=== PATIENT | male | born 1945 | race Caucasian/White ===

== ENCOUNTER 2017-02-18 08:51 | Outpatient (CLI) | payer MEDICARE, BC | END 2017-02-18 08:52 | disposition home or self-care (01) | PROVIDERS: ATTEND Psychiatry & Neurology Neurology | DX: R13.12 Dysphagia, oropharyngeal phase (principal); R63.3 Feeding difficulties; G20 Parkinson's disease | CPT/HCPCS: 74230; G8996-GN-CK; G8997-GN-CI ==

== ENCOUNTER 2017-05-06 13:03 | Outpatient (CLI) | payer MEDICARE, BC ==
--- NOTE | 2017-05-11 16:26 | RAD ---
MODIFIED BARIUM SWALLOW PERFORMED WITH SPEECH THERAPIST 05/11/17 HISTORY: Dysphagia with feeding difficulty and Parkinson's disease. Patient is given a variety of textures including puree and nectar thick liquid via cup, thin liquid v ia spoon and cup and mechanical soft texture food. This shows persistent residue in the vallecula and piriform sinus level. There is aspiration noted to the vocal fold level with one of the swallows consistencies not labeled on the films. No definite ex tension beyond the vocal cord level. IMPRESSION: Findings as noted above. Please see speech therapists report for complete description. POS: [facility]
== END 2017-05-06 13:04 | disposition home or self-care (01) ==
PROVIDERS: ATTEND Psychiatry & Neurology Neurology
DX: R13.12 Dysphagia, oropharyngeal phase (principal); R63.3 Feeding difficulties; G20 Parkinson's disease
CPT/HCPCS: 74230; G8996-GN-CK; G8997-GN-CJ

== ENCOUNTER 2017-11-07 23:45 | Inpatient (IN) | payer MEDICARE, BC ==
[2017-11-08] MEDS ORDERED: Diltiazem 125 MG/25 ML ONE (00:05)
[2017-11-08 00:20] LABS: INR-International Normal Ratio 0.9; PTT 28.4 SEC (22.9-36.1); Prothrombin Time 12.7 SEC (12.0-14.7)
[2017-11-08] MEDS ORDERED: Digoxin 0.5 MG/2 ML AMP ONE ×2 (00:20→00:55)
[2017-11-08 00:32] LABS: #Basophils 0.1 thou/uL (0.0-0.2); #Eosinphils 0.2 thou/uL (0.0-0.7); #Lymphocytes 2.4 thou/uL (1.20-3.40); #Monocytes 0.5 thou/uL (0.11-0.59); #Neutrophils 3.9 thou/uL (1.40-6.50); %Basophils 1.4 % (0.0-1.0); %Eosinophils 3.5 % (0.0-10.0); %Lymphocytes 33.4 % (21.0-51.0); %Monocytes 6.3 % (0.0-10.0); %Neutrophils 55.5 % (42.0-75.0); Hemoglobin 13.3 g/dL (14.0-18.0); Mean Corpuscular HGB CONC 34.7 g/dL (32.0-36.0); Mean Corpuscular Hemoglobin 31.1 pg (27.0-31.0); Mean Corpuscular Volume 89.6 fL (78.0-98.0); Mean Platelet Volume 9.1 fL (7.4-10.4); Platelet Count 244 thou/uL (130-400); RBC Distribution Width 11.5 % (11.5-14.5); Red Blood Cell (RBC) Count 4.26 mill/uL (4.70-6.10)
[2017-11-08 00:35] LABS: CKMB 1.7 ng/mL (0-6.6); Troponin I Less than 0.010 ng/mL (< 0.028)
[2017-11-08 00:39] LABS: Anion Gap 14 mmol/L (10-20); BUN (Urea Nitrogen) 9 mg/dL (8.4-25.7); Calc. Creatinine Clearance 0 mL/min (70-130); Calcium 9.9 mg/dL (7.8-10.44); Carbon Dioxide 31 mmol/L (23-31); Chloride 100 mmol/L (98-107); Estimated GFR-MDRD Greater than 90; Glucose 96 mg/dL (83-110); Lipase 56 U/L (8-78); Magnesium 2.2 mg/dL (1.6-2.6); Potassium 3.7 mmol/L (3.5-5.1); Sodium 141 mmol/L (136-145)
[2017-11-08] MEDS ORDERED: Diltiazem HCl 125 MG, Admixture Fee 1 EACH in Sodium Chloride 0.9% 100 ML IVPB SCH (02:45)
[2017-11-08 02:47] VITALS: BMI 27.5
[2017-11-08] MEDS ORDERED: Loratadine 10 MG TAB PO PRN (06:46)
[2017-11-08] MEDS ORDERED: Mag-Al 1200 mg/1200 mg/30 ML UDCUP PO PRN (06:46)
[2017-11-08] MEDS ORDERED: Loperamide HCl 2 MG CAP PO PRN (06:46)
[2017-11-08] MEDS ORDERED: Diltiazem 125 MG in Sodium Chloride 0.9% 100 ML IVPB SCH (06:46)
[2017-11-08] MEDS ORDERED: Artificial Tears 18 DROP/0.9 ML EA EYE PRN (06:46)
[2017-11-08] MEDS ORDERED: HYDROcodone/Acetaminophen 5/325 mg Tablet PO PRN (06:46)
[2017-11-08] MEDS ORDERED: Ondansetron HCl/PF 4 MG/2 ML Vial IVP PRN (06:46)
[2017-11-08] MEDS ORDERED: Senokot 8.6 MG TAB PO PRN (06:46)
[2017-11-08] MEDS ORDERED: Chloraseptic Spray 180 ml Bottle PO PRN (06:46)
[2017-11-08] MEDS ORDERED: Ondansetron ODT 4 MG TAB PO PRN (06:46)
[2017-11-08] MEDS ORDERED: Nitroglycerin 0.4 MG TAB (25 Tab Bottle) SL PRN (06:46)
[2017-11-08] MEDS ORDERED: Acetaminophen 325 MG TAB PO PRN (06:46)
[2017-11-08] MEDS ORDERED: Diabetic Tussin 200 MG/10 ML UDCUP PO PRN (06:46)
[2017-11-08] MEDS ORDERED: Sodium Chloride 0.65% Nasal 44 ML BOT EA NARE PRN (06:46)
[2017-11-08] MEDS ORDERED: Eucerin (Mineral Oil/Petrolatum,White) 30 gm Jar TOP PRN (06:46)
[2017-11-08] MEDS ORDERED: Zolpidem Tartrate 5 MG TAB PO PRN (06:46)
[2017-11-08] MEDS ORDERED: hydrALAZINE 20 MG/ML VIAL SLOW IVP PRN (06:46)
[2017-11-08] MEDS ORDERED: Labetalol HCl 100 MG/20 ML VIAL SLOW IVP PRN (06:46)
[2017-11-08] MEDS ORDERED: Milk Of Magnesia 30 ML UDCUP PO PRN (06:46)
[2017-11-08] MEDS: Midodrine HCl 5 MG TAB PO SCH ×2 (08:41→20:33)
[2017-11-08] MEDS: Calcium Polycarbophil 625 MG TAB PO SCH (08:41)
[2017-11-08] MEDS: Aspirin 325 MG TAB PO SCH (08:42)
[2017-11-08] MEDS: Famotidine 20 MG TAB PO SCH ×2 (08:42→20:34)
[2017-11-08] MEDS ORDERED: MIDODRINE HCL PO SCH (09:00)
[2017-11-08] MEDS ORDERED: Prevnar 13-Val Conj/PF 0.5 ML SYRINGE IM ONE (09:00)
[2017-11-08] MEDS ORDERED: Aspirin 325 MG TAB PO SCH (09:00)
--- NOTE | 2017-11-08 09:25 | RAD ---
PORTABLE AP CHEST XRAY: DATE: 11/08/17. HISTORY: Chest pain. COMPARISON: 11/08/17. FINDINGS: Cardiac silhouette and pulmonary vasculature are within normal limits for the portable technique of t he study. The lateral aspect of the right lateral costophrenic angle is excluded from view. Lungs o therwise appear clear. Minimal vascular calcification of the thoracic aorta. There has been no inte rval change from prior exam. IMPRESSION: No acute cardiopulmonary process. POS: [facility]
--- NOTE | 2017-11-08 11:28 | HP ---
PRIMARY CARE PHYSICIAN: [facility] call admission. REASON FOR ADMISSION: Atrial fibrillation with rapid ventricular response. HISTORY OF PRESENT ILLNESS: A 72-year-old male who has previous history of atrial fibrillation, requ ired ablation in past who presented to emergency room last night with the complaint of chest pain. T he patient was having chest pain on the left side without any radiation, started last night around mi dnight. He describes pain as a pressure and sharp in nature without any radiation and that is why he went to emergency room at [facility]. The patient was also experiencing intermittentl y shortness of breath, palpitation for last 2-3 days. He denies any previous bleeding. He denies an y previous stroke. He denies any diabetes history. He denies any CHF symptoms. He denies any UTI s ymptoms. He denies any constipation, diarrhea, melena or hematochezia. Patient reports that he was not on any blood thinner medicine recently that was taken off from his me dicine by his doctors. The patient was also not taking any rate controlling medication. The patient does not have any clue about his cardiac medication. This patient has a negative stress test in 201 4. At that time, the patient had ablation procedure for atrial fibrillation. REVIEW OF SYSTEMS: The following complete review of systems was negative, unless otherwise mentioned in the HPI or below: Constitutional: Weight loss or gain, ability to conduct usual activities. Skin: Rash, itching. Eyes: Double vision, pain. ENT/Mouth: Nose bleeding, neck stiffness, pain, tenderness. Cardiovascular: Palpitations, dyspnea on exertion, orthopnea. Respiratory: Shortness of breath, wheezing, cough, hemoptysis, fever or night sweats. Gastrointestinal: Poor appetite, abdominal pain, heartburn, nausea, vomiting, constipation, or diarr hea. Genitourinary: Urgency, frequency, dysuria, nocturia. Musculoskeletal: Pain, swelling. Neurologic/Psychiatric: Anxiety, depression. Allergy/Immunologic: Skin rash, bleeding tendency. Please see my HPI for pertinent positive and negative. All other review of system reviewed and negat gloria except as mentioned in the HPI. PAST MEDICAL HISTORY: Paroxysmal atrial fibrillation, diabetes type 2, noninsulin dependent, but stephanie monreal is not on any of his medications lately and it is unclear whether he has real diabetes history o r not, hypothyroidism, Parkinson's disease, dyslipidemia. PAST SURGICAL HISTORY: Bilateral eye surgery, cardiac catheterization with ablation procedure. SOCIAL HISTORY: Patient lives at home with his family. No family history of tobacco or other illici t drug abuse. He drinks alcohol 2-3 beer per week. FAMILY HISTORY: Father from congestive heart failure. No strong family history of cancer or st roke. PAST PSYCHIATRIC HISTORY: Reviewed and negative. CURRENT HOME MEDICATIONS: Aspirin 81 mg p.o. daily, FiberCon one tablet p.o. daily, carbidopa/levodo pa one tablet b.i.d., Synthroid 50 mcg p.o. daily, midodrine 2.5 mg p.o. b.i.d., MiraLax 17 grams p.o . daily, Zocor 20 mg p.o. at bedtime. ALLERGIES: No known drug allergy. EMERGENCY ROOM COURSE: Patient was treated with a Cardizem drip. He was given digoxin, IV fluid, as pirin 324 mg. PHYSICAL EXAMINATION: VITAL SIGNS: On arrival, blood pressure 107/84, pulse 152, respiratory rate 22, temperature 98.2, sa turation 99% on room air, weight 70.3 kilograms. GENERAL: The patient is currently alert, awake, no obvious acute distress. HEENT: Head: Normocephalic, atraumatic. Eyes: Pupils round, reactive to light. Extraocular muscl e intact. ENT: Oropharynx within normal limits. Moist mucous membranes. No oral lesion, no pharyn geal erythema, no exudate. NECK: Supple, no JVD, no thyromegaly, no carotid bruit, no jugular venous distention. LUNGS: Clear to auscultation without any rhonchi or rales. CARDIAC: S1, S2, irregular. No murmur elicited, no gallop, no rub. ABDOMEN: Soft, bowel sounds present, nontender, nondistended. No organomegaly, no mass, no suprapub ic tenderness. BACK: Unremarkable, no CVA tenderness. EXTREMITIES: Upper extremity, passive movement of all joints are normal. Lower extremity, no edema. Good peripheral pulsation, no calf tenderness. SKIN: No skin rash. HEMATOLOGICAL: No lymphadenopathy. PSYCHIATRIC: Normal affect. SIGNIFICANT LABORATORY DATA AND IMAGING: EKG showing atrial fibrillation with rapid ventricular resp onse, complete left bundle branch block pattern, nonspecific ST-T changes. CBC: WBC 7.0, hemoglobin 13.3, platelet of 244,000. INR 0.9. BMP shows sodium 141, potassium 3.7, chloride 100, carbon dioxi de 31, anion gap 14, BUN 9, creatinine 0.72, glucose 96, calcium 9.9, magnesium 2.2. CK-MB 1.7, trop onin I less than 0.010. BNP 48.1, lipase 56. TSH 1.63. Chest x-ray based on my review, no acute ca rdiopulmonary process. ASSESSMENT AND PLAN: 1. Atrial fibrillation with rapid ventricular response. Patient has previous history of atrial fibr illation and he required ablation in past. He was feeling palpitation and shortness of breath for la st 2-3 days. He presented with chest pain most likely related with his atrial fibrillation with rapi d ventricular response. At this point, I will start with Lovenox 1 mg per kg subcu q.12 hours. The patient has only one point based on CHADS2 score. It is unclear whether this patient has diabetes or not. If consider diabetes as a risk factor, then he will have at least two risk factors. The patie nt's atrial fibrillation onset is uncertain and that is why he will need Lovenox 1 mg per kg. If he does not convert back to sinus rhythm or rate does not get under control, then he may need a cardiove rsion. Cardiology will be consulted. We will obtain echocardiography to assess ejection fraction an d other structural abnormality. TSH is normal. We will monitor on telemetry floor. We will obtain echocardiography. 2. Parkinson's disease. The patient will continue his Rytary ER, carbidopa/levodopa one tablet b.i. d. as per home dosage. 3. Hypothyroidism. TSH is normal. Continue Synthroid 50 mcg p.o. daily. 4. Dyslipidemia. Continue Zocor 20 mg p.o. at bedtime. 5. Deep venous thrombosis prophylaxis. Patient is kept on full dose of Lovenox therapy and will mon itor while in hospital. 6. Gastrointestinal prophylaxis. Pepcid 20 mg p.o. b.i.d. 7. CODE STATUS: The patient is FULL CODE. The patient's is surrogate decision maker. Disposition plan based on clinical course. We are expecting patient's stay in hospital more than 2 m idnights. Plan of care discussed with the patient and family member at bedside in detail.
[2017-11-08 12:05] LABS: CKMB 1.3 ng/mL (0-6.6); Troponin I Less than 0.010 ng/mL (< 0.028)
[2017-11-08] MEDS ORDERED: Dextrose 50% Abboject 50 ML SYRINGE IVP PRN (12:50)
[2017-11-08] MEDS ORDERED: HumaLOG 300 UNITS/3 ML VIAL SC PRN (12:50)
[2017-11-08] MEDS ORDERED: Dextrose 5% in Water 1,000 ML IV PRN (12:50)
[2017-11-08] MEDS ORDERED: Polyethylene Glycol 3350 17 GM Packet PO SCH (13:00)
[2017-11-08] MEDS: LEVODOPA PO SCH ×2 (13:06→20:40)
[2017-11-08] MEDS: CARBIDOPA PO SCH ×2 (13:06→20:40)
--- NOTE | 2017-11-08 14:07 | CON ---
DATE OF CONSULTATION: 11/08/2017 HISTORY OF PRESENT ILLNESS: Patient is a pleasant 72-year-old gentleman, who presented with midstern al chest discomfort. The patient has a previous history of atrial fibrillation in 2016. He was diag nosed with atrial fibrillation and he underwent a radiofrequency ablation. The patient states he has had no further difficulty since his ablation. The patient has developed Parkinson's disease. He myers s a history of hypotension and has been on midodrine. The patient was in his usual state of health w hen he developed midsternal chest discomfort. He states this lasted for approximately 15 minutes. Norberto sotomayor came to the emergency room and was noted to be in a rapid irregular heart rate, admitted for [facility]. The patient denies having any further chest discomfort. PAST MEDICAL HISTORY: Significant for, 1. Parkinson's disease. 2. Diabetes mellitus. 3. Hypertension. 4. Hypothyroidism. 5. Kidney stones. PAST SURGICAL HISTORY: He had eye surgery, cataract surgery. MEDICATIONS ON ADMISSION: Include, he takes Synthroid 50 mcg daily, Zocor 20 at bedtime, midodrine o ne tablet twice a day, carbidopa/levodopa one tablet p.o. b.i.d., aspirin 81 daily. SOCIAL HISTORY: Nonsmoker. FAMILY HISTORY: No strong family history of coronary artery disease. REVIEW OF SYSTEMS: The 10-point system noticeable for weakness. No history of falls. PHYSICAL EXAMINATION: GENERAL: This is a thin gentleman with a mild tremor. VITAL SIGNS: With a blood pressure 125/71, heart rate was 81. NECK: Showed no jugular venous distention. LUNGS: Clear to auscultation. HEART: Regular rate and rhythm, normal S1 and S2, no murmurs. ABDOMEN: Nondistended. EXTREMITIES: Show no edema. SKIN: Warm and dry. VASCULAR: Radial pulses are 2+. LABORATORY DATA: White blood count 7.0, hemoglobin 13.3, hematocrit 38.2, platelets 244. Sodium 141 , potassium 3.7, chloride 100, bicarbonate 31, BUN 9, creatinine 0.72. Troponin less than 0.01. BNP was 48. His EKG revealed rapid atrial fibrillation with a left bundle branch block. IMPRESSION: 1. Paroxysmal atrial fibrillation. 2. Diabetes mellitus. 3. Bradycardia. 4. Left bundle branch. 5. History of orthostatic hypotension. 6. Parkinson's disease. This gentleman developed chest pain with rapid atrial fibrillation. His cardiac enzymes revealed no evidence of myocardial infarction. From a cardiac standpoint, it will be difficult to place on antia rrhythmic drugs with his left bundle branch with his evidence of significant conduction disease and h istory of orthostatic hypotension. We will ask EP to further evaluate. We will check the patient's echocardiogram and we will perform outpatient stress testing. We will follow this patient with sanjuanita t hrough his hospitalization.
[2017-11-08] MEDS: Apixaban 5 MG TAB PO SCH (20:35)
[2017-11-08] MEDS ORDERED: Enoxaparin Sodium 80 MG/0.8 ML SYRINGE SC SCH (21:00)
[2017-11-08] MEDS ORDERED: Atorvastatin Calcium 10 MG TAB PO SCH (21:00)
[2017-11-09 05:59] LABS: #Eosinphils 0.1 thou/uL (0.0-0.7); #Lymphocytes 1.6 thou/uL (1.20-3.40); #Monocytes 0.3 thou/uL (0.11-0.59); #Neutrophils 3.3 thou/uL (1.40-6.50); %Basophils 0.7 % (0.0-1.0); %Eosinophils 2.7 % (0.0-10.0); %Lymphocytes 30.1 % (21.0-51.0); %Monocytes 6.2 % (0.0-10.0); %Neutrophils 60.3 % (42.0-75.0); Hemoglobin 11.9 g/dL (14.0-18.0); Mean Corpuscular Hemoglobin 31.5 pg (27.0-31.0); Mean Corpuscular Volume 95.4 fL (78.0-98.0); Mean Platelet Volume 7.9 fL (7.4-10.4); Platelet Count 228 thou/uL (130-400); RBC Distribution Width 11.8 % (11.5-14.5); Red Blood Cell (RBC) Count 3.77 mill/uL (4.70-6.10); White Blood Cell (WBC) Count 5.4 thou/uL (4.8-10.8)
[2017-11-09] MEDS ORDERED: Levothyroxine Sodium 50 MCG TAB PO SCH (06:00)
[2017-11-09 06:29] LABS: Anion Gap 8 mmol/L (10-20); BUN (Urea Nitrogen) 11 mg/dL (8.4-25.7); Calc. Creatinine Clearance 84 mL/min (70-130); Calcium 9.1 mg/dL (7.8-10.44); Carbon Dioxide 28 mmol/L (23-31); Chloride 103 mmol/L (98-107); Estimated GFR-MDRD Greater than 90; Glucose 92 mg/dL (83-110); Potassium 4.1 mmol/L (3.5-5.1); Sodium 135 mmol/L (136-145)
--- NOTE | 2017-11-09 07:12 | CON ---
DATE OF CONSULTATION: 11/08/2017 ELECTROPHYSIOLOGY CONSULTATION REPORT REFERRING PHYSICIAN: Dr. Pimentel. I am seeing Mr. Genao at our [facility] telemetry floor for electrophysiology consult and h is problems are: 1. Paroxysmal atrial fibrillation. A. Pulmonary venous isolation procedure in 08/2013. B. Recurrent atrial fibrillation with rapid rates on this admission, but with a spontaneous conversi on to sinus rhythm on diltiazem. 2. History of chronic right bundle branch block. 3. History of preserved left ventricular systolic function. 4. Risk factors including diabetes and dyslipidemia. 5. Hypothyroidism. 6. History of Parkinson disease. 7. Associated orthostatic hypotension. ALLERGIES: None noted. HOME MEDICATIONS: Medications at home included simvastatin, levothyroxine, Azilect, carbidopa/levodo pa, midodrine, calcium, aspirin and polyethylene glycol. SUBJECTIVE: Mr. Genao is here due to chest pains. We saw him last night, and he was found to be in atrial fibrillation with rapid rates. He was admitted and IV diltiazem was started. Lovenox was al so administered. He subsequently converted back to sinus rhythm, received some digoxin as well overn ight for rate control, currently doing fair with normal rates. He denies any chest pains. No PND, o rthopnea, lower extremity with his fluid overload. He had been having stroke-like symptoms. He has no history of bleeding disorder, orthostatic hypotension. He is controlled with midodrine low dose a nd has not been falling recently. He also has not fallen in due to his Parkinsonism, history of head trauma, etc. Rest of 12-point system is otherwise unremarkable. PAST MEDICAL HISTORY: As above. He underwent a pulmonary venous isolation procedure with isolating pulmonary veins, also left atrial septum and posterior wall was also ablated. He did not have any sy mptomatic recurrence since. His last office visit was in 2014, changed before p.r.n. followup. His Xarelto was discontinued in the past. SOCIAL HISTORY: Patient denies smoking, ETOH or drug abuse. He does drink alcohol socially. His wi fe has extensive hospitalization currently in rehabilitation, which puts significant stress on him. PHYSICAL EXAMINATION: VITAL SIGNS: Blood pressure 136/65, heart rate 56, respirations 18, temperature 97.7 degrees Fahrenh eit. GENERAL: This is alert and oriented man with some baseline tremor in the hands. NECK: Supple. Jugular veins are distended. LUNGS: Chest is coarse without crackles. CARDIAC: Heart sounds are regular rate and rhythm. No murmur or gallop. ABDOMEN: Benign. Bowel sounds positive. EXTREMITIES: Lower extremity edema, no clubbing or cyanosis. Pulses are adequate. NEUROLOGIC: Appears nonfocal. MUSCULOSKELETAL: No joint swelling or deformities. SKIN: Without rash. DATABASE: The EKG was reviewed revealing initial atrial fibrillation with rapid rates with left bund le-branch block pattern is noted. No clear flutter waves are documented. Most recent EKG though rev eals sinus rhythm with rates in the 60s. Cardizem drip was stopped. LABORATORY STUDIES: White count 7, hemoglobin 13.3, platelet count is 244. INR 0.9. Sodium 141, po tassium 3.7, BUN is 9, creatinine 0.72. BNP is 480.1. TSH is 1.639, normal range. ASSESSMENT AND PLAN: Chadiwck is a 72-year-old man with a prior history of paroxysmal atrial fibrillat ion, status post pulmonary venous isolation procedure and he had no recurrent episodes for the last 5 years. He has been doing well, but now has recurrent palpitations, chest pains and was admitted. I V diltiazem was started as well as digoxin for rate control. Eventually, he has converted back to si nus rhythm on IV diltiazem drip. He has been given Lovenox. His paroxysmal atrial fibrillation possibly the future embolic events. His CHADS VASc score is aroun d 2 based on his age and diabetes. For this reason, I think it is reasonable to consider restarting anticoagulation. At this point, I would use continued low dose beta julito versus a calcium channel julito, diltiazem for rhythm control. Should there be further recurrences for the enteric agents, flecainide versus Multaq could be considered. Left atrial ablation procedure is also a possibility. I discussed these issues with him. We will see him back in about 6 weeks for followup. We will init sharmin Pitt. I discussed the pros and cons with him. He understands and agrees with the plan.
[2017-11-09] MEDS ORDERED: Polyethylene Glycol 3350 17 GM Packet PO SCH (09:00)
[2017-11-09] MEDS ORDERED: RASAGILINE 1 MG PO SCH (09:00)
[2017-11-09] MEDS: Midodrine HCl 5 MG TAB PO SCH (10:02)
[2017-11-09] MEDS: Apixaban 5 MG TAB PO SCH (10:03)
[2017-11-09] MEDS: Aspirin 325 MG TAB PO SCH (10:03)
[2017-11-09] MEDS: Famotidine 20 MG TAB PO SCH (10:03)
[2017-11-09] MEDS: Calcium Polycarbophil 625 MG TAB PO SCH (10:04)
[2017-11-09] MEDS: CARBIDOPA PO SCH (10:11)
[2017-11-09] MEDS: LEVODOPA PO SCH (10:11)
--- NOTE | 2017-11-09 11:44 | DIS ---
DATE OF ADMISSION: 11/08/2017 DATE OF DISCHARGE: 11/09/2017 PRIMARY CARE PHYSICIAN: Doni Mccray M.D. DISCHARGE DISPOSITION: Home. PRIMARY DISCHARGE DIAGNOSIS: Paroxysmal atrial fibrillation with rapid ventricular response. SECONDARY DISCHARGE DIAGNOSES: Parkinson's disease, orthostatic hypotension, left bundle branch bloc k pattern, hypothyroidism, dyslipidemia, diabetes type 2, paroxysmal atrial fibrillation. PRIMARY PROCEDURE/OPERATION: None. RADIOLOGICAL INVESTIGATION: Chest x-ray was normal. Echocardiography showed normal EF. SIGNIFICANT LABORATORY DATA: WBC 5.4, hemoglobin 11.9 and platelet 228. Sodium 135, potassium 4.1, BUN 11, creatinine 0.74, calcium 9.1. Cardiac enzymes negative. BNP 48.1. TSH 1.63. DISCHARGE MEDICATIONS: Eliquis 5 mg p.o. b.i.d., aspirin 81 mg p.o. daily, FiberCon one tablet p.o. daily, Rytary ER one tablet p.o. b.i.d., Synthroid 50 mcg p.o. daily, midodrine 2.5 mg p.o. b.i.d., M iraLax 17 grams p.o. daily, Azilect 1 mg p.o. daily, Zocor 20 mg p.o. at bedtime. CONTRAINDICATIONS: None. CODE STATUS: FULL CODE. INPATIENT CONSULTANTS: Dr. Pimentel was consulted while in hospital. Dr. Gómez was consulted while i hospital. TEST RESULTS PENDING ON DISCHARGE: None. ALLERGIES: No known drug allergy. DISCHARGE PLAN: Post hospital, patient will follow up with Dr. Pimentel in 1 week. The patient will follow up with primary care physician. HOSPITAL COURSE: A 72-year-old male with above mentioned medical problem who presented to ER with co mplaint of palpitation and chest pain. He was diagnosed with atrial fibrillation with rapid ventricu lar response. He was started on Cardizem drip and subsequently he was admitted to telemetry floor. We did serial cardiac enzyme and ruled out acute coronary syndrome. Cardiology was consulted and Car diology recommended to start Eliquis therapy. We did echocardiography which was unremarkable. [facility] as an [facility] basis. This patient's heart rate was running on lower side and that is why Cardiology recommended not to add any beta julito therapy. Only anticoa gulation therapy was advised. The patient is seen and examined at bedside today. PHYSICAL EXAMINATION: VITAL SIGNS: Currently, temperature 98.0, pulse 59, respiratory rate 16, saturation 98% on room air, blood pressure 144/68, and weight 143 pounds. GENERAL: The patient is currently alert, awake, no obvious acute distress. HEAD: Normocephalic, atraumatic. EYES: Pupils round and reactive to light. Extraocular muscle intact. ENT: Oropharynx within normal limits. Moist mucous membrane, no oral lesion, no pharyngeal erythema , no exudate. NECK: Supple, no JVD, no thyromegaly, no carotid bruits. LUNGS: Clear to auscultation without any rhonchi or rales. CARDIAC: S1, S2 regular. No murmur, no gallop, no rub. ABDOMEN: Soft and benign. EXTREMITIES: No edema. NEUROLOGIC: Nonfocal examination. All new medication prescriptions given to his pharmacy. Patient is medically stable for discharge an d Cardiology cleared him for discharge.
[2017-11-09 12:23] VITALS: BP 156/75; TEMP 98.1
== END 2017-11-09 12:43 | disposition home or self-care (01) | DRG 310 ==
LOC: SCSER 23:45 → 2NO 11-08 01:00
PROVIDERS: ADMIT Internal Medicine; ATTEND Internal Medicine
DX: I48.0 Paroxysmal atrial fibrillation (principal); E11.9 Type 2 diabetes mellitus without complications; E03.9 Hypothyroidism, unspecified; G20 Parkinson's disease; E78.5 Hyperlipidemia, unspecified; Z79.82 Long term (current) use of aspirin; Z79.899 Other long term (current) drug therapy; I95.1 Orthostatic hypotension; I44.7 Left bundle-branch block, unspecified
CPT/HCPCS: 36415; 36416; 71045; 80048; 82274; 82553; 83690; 83735; 83880; 84443; 84484; 85025; 85610; 85730; 93005; 93306; 94760; 96361; 96365; 96374; 96376; A4216; J1160

== ENCOUNTER 2018-12-13 21:10 | Inpatient (IN) | payer MEDICARE, BC ==
--- NOTE | 2018-12-13 21:52 | RAD ---
FRONTAL RADIOGRAPH PELVIS: 12/13/2018 HISTORY: Fall. Trauma. Pain. COMPARISON: None. FINDINGS: The pelvic ring is intact. There is no widening of the sacroiliac joints or pubic symphysis. The fem oral heads project normally over their respective acetabulum. There is subtle foreshortening of the left femoral neck with probable fracture seen involving the proximal left femoral neck laterally. IMPRESSION: Findings suspicious for left femoral neck fracture. POS: OFF
--- NOTE | 2018-12-13 21:53 | RAD ---
LEFT HIP TWO VIEWS: 12/13/2018 HISTORY: Injury. Trauma. Pain. COMPARISON: None. FINDINGS: There appears to be a fracture at the junction of the femoral head and neck on the left with mild imp action. A fracture line is suspected on the lateral view, overlying the intertrochanteric region. IMPRESSION: Findings suspicious for a nondisplaced fracture of the left femoral neck. POS: OFF
[2018-12-13 22:28] LABS: INR-International Normal Ratio 1.1; Prothrombin Time 14.4 SEC (12.0-14.7)
[2018-12-13 22:34] LABS: Eosinophils 1 % (0-10); Lymphocytes 29 % (21-51); MDiff Complete? YES; Mean Corpuscular Hemoglobin 31.1 pg (27.0-31.0); Mean Corpuscular Volume 91.3 fL (78.0-98.0); Mean Platelet Volume 7.8 fL (7.4-10.4); Monocytes 2 % (0-10); Neutrophil 66 % (42-75); Platelet Count 272 thou/uL (130-400); RBC Distribution Width 11.6 % (11.5-14.5); Reactive Lymphocytes 2 % (0-10); Red Blood Cell (RBC) Count 3.87 mill/uL (4.70-6.10); White Blood Cell (WBC) Count 5.6 thou/uL (4.8-10.8)
[2018-12-13 22:38] LABS: ALT (SGPT) 9 U/L (8-55); AST (SGOT) 21 U/L (5-34); Alkaline Phosphatase 93 U/L (40-150); Anion Gap 13 mmol/L (10-20); BUN (Urea Nitrogen) 11 mg/dL (8.4-25.7); Bilirubin, Total 0.4 mg/dL (0.2-1.2); Calc. Creatinine Clearance 0 mL/min (70-130); Calcium 9.3 mg/dL (7.8-10.44); Carbon Dioxide 28 mmol/L (23-31); Chloride 100 mmol/L (98-107); Estimated GFR-MDRD Greater than 90; Globulin 2.6 g/dL (2.4-3.5); Glucose 91 mg/dL (83-110); Potassium 3.7 mmol/L (3.5-5.1); Protein, Total 6.6 g/dL (5.8-8.1); Sodium 137 mmol/L (136-145)
[2018-12-14] MEDS ORDERED: Ondansetron ODT 4 MG TAB PO PRN (00:26)
[2018-12-14] MEDS ORDERED: Morphine 4 MG/ML VIAL SLOW IVP PRN (00:26)
[2018-12-14] MEDS ORDERED: hydrALAZINE 20 MG/ML VIAL SLOW IVP PRN (00:26)
[2018-12-14] MEDS ORDERED: Cyclobenzaprine 10 MG TAB PO PRN (00:26)
[2018-12-14] MEDS ORDERED: Dextrose 5% in Water 1,000 ML IV PRN (00:26)
[2018-12-14] MEDS ORDERED: Ondansetron PF 4 MG/2 ML Vial IVP PRN (00:26)
[2018-12-14] MEDS ORDERED: Dextrose 50% Abboject 50 ML SYRINGE SLOW IVP PRN (00:26)
[2018-12-14] MEDS ORDERED: Acetaminophen 1,000 MG in Premix Bag 1 BAG IVPB SCH (00:30)
[2018-12-14] MEDS ORDERED: Ketorolac Tromethamine 30 MG/ML VIAL IVP SCH (00:45)
[2018-12-14] MEDS: Sodium Chloride 0.9% 1,000 ML IV SCH ×2 (01:06→09:31)
[2018-12-14] MEDS: Morphine 2 MG/ML SYRINGE SLOW IVP PRN ×2 (02:15→20:27)
[2018-12-14] MEDS: Acetaminophen 1,000 MG in Premix Bag 1 BAG IVPB SCH ×3 (06:02→18:26)
[2018-12-14] MEDS: Ketorolac Tromethamine 30 MG/ML VIAL IVP SCH ×4 (06:03→23:16)
[2018-12-14 07:15] LABS: #Eosinphils 0.1 thou/uL (0.0-0.7); #Lymphocytes 0.9 thou/uL (1.20-3.40); #Monocytes 0.6 thou/uL (0.11-0.59); #Neutrophils 8.1 thou/uL (1.40-6.50); %Basophils 0.3 % (0.0-1.0); %Lymphocytes 9.6 % (21.0-51.0); %Neutrophils 83.1 % (42.0-75.0); Hemoglobin 12.1 g/dL (14.0-18.0); Mean Corpuscular HGB CONC 32.4 g/dL (32.0-36.0); Mean Corpuscular Hemoglobin 30.2 pg (27.0-31.0); Mean Corpuscular Volume 93.1 fL (78.0-98.0); Mean Platelet Volume 7.1 fL (7.4-10.4); Platelet Count 258 thou/uL (130-400); RBC Distribution Width 11.5 % (11.5-14.5); Red Blood Cell (RBC) Count 4.01 mill/uL (4.70-6.10); White Blood Cell (WBC) Count 9.7 thou/uL (4.8-10.8)
[2018-12-14] MEDS ORDERED: CEFAZOLIN 2 GM in Premix Bag 1 BAG IVPB SCH (07:30)
[2018-12-14 07:33] LABS: Anion Gap 10 mmol/L (10-20); BUN (Urea Nitrogen) 11 mg/dL (8.4-25.7); Calc. Creatinine Clearance 89 mL/min (70-130); Calcium 8.9 mg/dL (7.8-10.44); Carbon Dioxide 27 mmol/L (23-31); Chloride 103 mmol/L (98-107); Estimated GFR-MDRD Greater than 90; Glucose 105 mg/dL (83-110); Potassium 4.1 mmol/L (3.5-5.1); Sodium 136 mmol/L (136-145)
--- NOTE | 2018-12-14 07:38 | HP ---
REQUESTING PHYSICIAN: Dr. Magallanes. ATTENDING SURGEON: Dr. Rizo. CONSULTATIONS: Orthopedics, Dr. Beverly. HISTORY OF PRESENT ILLNESS: The patient is a 73-year-old man, who was pulling his garage door down manually when it suddenly accelerated and knocked him to the ground landing on his left hip. The patient denied any loss of consciousness. Family brought him to the [facility] Emergency Department, where he underwent evaluation and examination and was noted to have a left nondisplaced femoral neck fracture, at which time we were asked to evaluate the patient for admission and obtain Orthopedic consultation. ALLERGIES: NONE. CURRENT MEDICATIONS: 1. Aspirin. 2. Levothyroxine. 3. Simvastatin. 4. Azilect. 5. Multivitamin. 6. FiberCon. 7. Eliquis. 8. Carbidopa/levodopa. PAST MEDICAL HISTORY: Type 2 diabetes, hypothyroidism, history of kidney stones, hyperlipidemia, Parkinson disease, atrial fibrillation. PAST SURGICAL HISTORY: Cardiac ablation for his atrial fibrillation, bilateral cataract surgery. SOCIAL HISTORY: The patient lives independently at home. Reports drinking maybe once a week. Denies drug or tobacco use. 10-point review of systems is negative as otherwise stated. PHYSICAL EXAMINATION: VITAL SIGNS: Blood pressure 146/73, heart rate 59, respirations 16, oxygen saturation is 96% on room air, temperature is 98.1. GENERAL: The patient is resting comfortably on the surgical floor. He has just arrived after being transported from the [facility] ER. He is awake, responsive. A and O x2. He has some confusion as to his current location, but he is easily reoriented. Carlyn Coma Scale is 15. HEENT: Head is normocephalic and atraumatic. Eyes, extraocular motion intact. PERRLA bilaterally. Ears are atraumatic without discharge. Nose, atraumatic without discharge. Oropharynx is clear. Neck is nontender. Trachea is midline. No JVD. CHEST: Clear to auscultation with good inspiratory and expiratory effort. HEART: Regular rate and rhythm. ABDOMEN: Soft, flat, nontender with active bowel sounds. Pelvis is stable with tenderness to palpation to the left hip consistent with his fracture. EXTREMITIES: Neurovascularly intact x4. The patient does have a small abrasion on his left upper extremity and lateral aspect of his left knee. BACK: By report is atraumatic and nontender. LABORATORY FINDINGS: White blood cell count 5.6, hemoglobin 12.0, hematocrit 35.4, platelets 272. Sodium 137, potassium 3.7, chloride 100, CO2 of 28, BUN 11, creatinine 0.78, glucose 91. LFTs are unremarkable. Troponin is less than 0.010. PT 14, INR 1.1, PTT 32. RADIOGRAPHIC REPORTS: AP pelvis shows findings suspicious for left femoral neck fracture. Views of the left hip show findings suspicious for a nondisplaced fracture of the left femoral neck. ASSESSMENT: 1. Status post ground level fall. 2. Left femoral neck fracture. PLAN: Plan will be to keep the patient n.p.o. per discussion with Dr. Beverly in light of the patient taking Eliquis. We reviewed the patient's records and we will be able to do him with percutaneous screw fixation tomorrow. We will keep the patient n.p.o., give pain control, pulmonary toilet, gastritis, mechanical VTE prophylaxis. The evaluation, examination, laboratory, and radiographic findings will be discussed with Dr. Rizo after this dictation. Job ID: [id number]
[2018-12-14] MEDS: Famotidine 20 MG TAB PO SCH ×3 (09:31→20:32)
[2018-12-14 11:37] VITALS: BMI 20.7
--- NOTE | 2018-12-14 11:58 | PRG ---
DATE OF SERVICE: 12/14/2018 SUBJECTIVE: The patient is a 73-year-old man, who sustained a left nondisplaced femoral neck fracture. He is status post day #1 from his fall. He was taking Eliquis for his atrial fibrillation, which has been stopped at this time. He states that his pain is well controlled. He has no complaints. OBJECTIVE: VITAL SIGNS: Temperature 97.8, pulse 62, oxygen saturation 94% on room air, and blood pressure 155/82. GENERAL: The patient is in no acute distress, lying in bed at this time before surgery. HEENT: Extraocular muscles are intact. CARDIAC: Regular rate and rhythm. PULMONARY: Clear to auscultation bilaterally. No increased work of breathing. ABDOMEN: Soft, nontender, nondistended. EXTREMITIES: Neurovascularly intact x4. The patient had flexion to roughly 60 degrees at the hip on the left side. He denied any pain with this active movement. LABORATORY DATA: White blood cell count 9.7, hemoglobin 12.1, platelet 258. INR 1.1, PTT 32.0. Sodium 136, potassium 4.1, chloride 103, BUN 11, creatinine 0.73. ASSESSMENT: 1. Status post ground level fall. 2. Left femoral neck fracture. PLAN: The patient remains n.p.o. at this time and we will undergo a screw fixation later this afternoon. He denies any complaints at this time. We will follow up with the patient after surgery. At that time, we will encourage physical therapy and occupational therapy per the patient. Job ID: [id number]
[2018-12-14] MEDS ORDERED: Fentanyl 100 MCG/2 ML VIAL ONE (12:29)
[2018-12-14] MEDS ORDERED: ceFAZolin Sodium (SDC) 2 GM/100 ML BAG ONE (12:47)
[2018-12-14] MEDS ORDERED: Promethazine HCl 25 MG/ML VIAL SLOW IVP PRN (14:10)
[2018-12-14] MEDS ORDERED: Promethazine HCl 25 MG/ML VIAL IM PRN (14:10)
[2018-12-14] MEDS ORDERED: Ondansetron HCl/PF 4 MG/2 ML Vial IVP PRN (14:10)
[2018-12-14] MEDS ORDERED: PACU-Morphine 4MG/ML VIAL SLOW IVP PRN (14:10)
--- NOTE | 2018-12-14 14:54 | CON ---
DATE OF CONSULTATION: 12/14/2018 REQUESTING PHYSICIAN: Chantel Rizo MD BRIEF HISTORY OF PRESENT ILLNESS: The patient is a 73-year-old gentleman, who was examined up on the third floor of [facility] in [place]. He reports that on the evening of December 13, 2018, he sustained a ground level fall when he was pulling his garage door down and he lost balance landing on his left side. There was no loss of consciousness. He was transported to [facility] Emergency Room, where x-rays demonstrated a mildly valgus impacted femoral neck fracture. The patient was subsequently transferred to [facility] for orthopedic evaluation. PAST MEDICAL HISTORY: Remarkable for diabetes, hypothyroidism, Parkinson disease, and atrial fibrillation. PAST SURGICAL HISTORY: Includes ablation procedure for atrial fibrillation as well as cataract surgery. MEDICATIONS: Include: 1. Eliquis, which he did take on the morning of his accident. 2. Aspirin. 3. Levothyroxine. 4. Levodopa. 5. Simvastatin. ALLERGIES: NONE KNOWN. FAMILY HISTORY: Noncontributory. SOCIAL HISTORY: The patient does live independently. He reports no tobacco or drug use. He will have an occasional drink with meals. REVIEW OF SYSTEMS: Denies recent fevers, chills, or sweats. Denies chest pain or shortness of breath. Denies numbness or tingling in this left lower extremity. PHYSICAL EXAMINATION: VITAL SIGNS: Temperature of 97.8, heart rate of 62, respiratory rate of 16, and blood pressure of 155/82. HEENT: Atraumatic and normocephalic. HEART: Shows a regular rate and rhythm without murmur. LUNGS: Clear to auscultation bilaterally with good breath sounds. Chest wall is nontender. ABDOMEN: Flat and nontender. PELVIS: Stable to compression and nontender. EXTREMITIES: Remarkable for bilateral upper extremities that are atraumatic with normal distal neurovascular exam. A right lower extremity that is also atraumatic. A left lower extremity with pain in the groin with logrolling of the thigh without shortening or external rotation. The knee, ankle, and foot appear atraumatic. He is wiggling his toes normally. He has normal sensation distally. LABORATORY DATA: White count of 5.6, hematocrit of 35.4, and 272,000 platelets. He has an INR of 1.1. X-rays, AP pelvis as well as AP lateral left hip, remarkable for a mildly valgus impacted femoral neck fracture with a lateral x-ray of the hip showing no posterior or anterior angulation. ASSESSMENT: A 73-year-old gentleman, status post ground level fall sustaining a left femoral neck fracture, subcapital and nondisplaced. PLAN: At this time, the patient is going to be taken to the operating room for percutaneous screw stabilization. The patient is on Eliquis; however, this screw stabilization is essentially percutaneous technique and felt to be compatible with the gentleman who is currently anticoagulated. Today, I have discussed with the patient the risks and benefits of the procedure. Risks include, but are not limited to bleeding, infection, nerve injury, DVT, PE, malunion, nonunion, loss of limb or life. The patient appears to understand and does wish to proceed. Informed consent will be obtained prior to surgery. Job ID: [id number]
--- NOTE | 2018-12-14 17:00 | RAD ---
LEFT HIP: INDICATIONS: Fluoroscopic imaging in the OR for open reduction and internal fixation procedure. TECHNIQUE: Two fluoroscopic views were taken in the OR. FINDINGS: Three pins transfix the left femoral neck. POS: TPC
--- NOTE | 2018-12-14 18:35 | OP ---
DATE OF PROCEDURE: 12/14/2018 PREOPERATIVE DIAGNOSIS: Left subcapital femoral neck fracture, valgus impacted. POSTOPERATIVE DIAGNOSIS: Left subcapital femoral neck fracture, valgus impacted. PROCEDURE PERFORMED: Cannulated screw stabilization of left femoral neck. ANESTHESIA: General. IMPLANTS: Synthes 7.3 mm cannulated screws x3. ESTIMATED BLOOD LOSS: 10 mL. COMPLICATIONS: None. DRAINS: None. SPECIMEN: None. OUTCOME: Near-anatomic alignment. INDICATIONS: The patient sustained a ground level fall at his home yesterday afternoon, sustaining a left femoral neck fracture. I have discussed with the patient the nature of his fracture, the fact that it is minimally displaced. As such, we are now going to proceed with cannulated screw stabilization. Informed consent has been obtained. I believe all questions have been answered. Risks and benefits have been discussed. DESCRIPTION OF PROCEDURE: The patient was brought to the operating room and a time-out performed followed by induction of general anesthesia. Next, the patient was positioned supine on the fracture table with the injured extremity held in longitudinal traction and slight internal rotation with the well leg held in extension at the hip to allow for scissoring of the thighs for AP, lateral C-arm imaging of the left hip. Next, a sterile prep and drape were performed in the left lateral thigh. Under C-arm guidance, a small 1-inch incision was made distal to the greater trochanter. After skin was sharply incised, a threaded guidewire was passed through the lateral cortex of the femur up along the inferior portion of the femoral neck up into the femoral head. Once appropriately positioned, a second pin was passed superior and anterior to the first and then the third pin passed posterior and superior to the first pin, getting a triangular spread of these pins. Measurement was taken off the pins and then the drill was used to drill the lateral cortex of the femur and then appropriate length screws were passed over their respective guidewires. The guidewires were then removed, and final AP and lateral C-arm images were obtained. At the completion of this, the wound was irrigated with bulb syringe, then closed in layers with 2-0 Vicryl and miley for the skin. Xeroform gauze and tape dressing were applied to the thigh, and the patient was transferred to recovery room in stable condition. There were no complications. He tolerated the procedure well. Job ID: [id number]
[2018-12-14] MEDS: Atorvastatin Calcium 10 MG TAB PO SCH ×2 (20:30→20:33)
[2018-12-14] MEDS: CEFAZOLIN 2 GM, IV Admixture Fee-Chemo 1 UNITS in Sodium Chloride 0.9% 100 ML IVPB SCH (22:29)
[2018-12-14] MEDS: Melatonin 3 MG TAB PO PRN (23:37)
[2018-12-14] MEDS: Zolpidem Tartrate 5 MG TAB PO PRN (23:37)
[2018-12-15] MEDS ORDERED: traMADol HCl 50 MG TAB PO PRN (01:36)
[2018-12-15] MEDS ORDERED: Ibuprofen 600 MG TAB PO PRN (01:37)
[2018-12-15] MEDS ORDERED: Morphine 4 MG/ML VIAL SLOW IVP PRN (01:38)
[2018-12-15] MEDS ORDERED: Sodium Chloride 0.9% 1,000 ML IV SCH (02:00)
--- NOTE | 2018-12-15 03:08 | PRG ---
DATE OF SERVICE: 12/15/2018 SUBJECTIVE: The patient is status post ground level fall in which he sustained a left subcapital femoral neck fracture. The patient today underwent cannulated screw stabilization of this fracture, which he tolerated, but due to his late return from the operating room, he has not worked with Physical Therapy yet. OBJECTIVE: VITAL SIGNS: Stable. The patient is afebrile. GENERAL: The patient is resting comfortably in bed. He is awake, does appear to have some confusion, but was calm and could be reoriented. LUNGS: Clear to auscultation bilaterally. HEART: Regular rate and rhythm. ABDOMEN: Soft with active bowel sounds, nontender. EXTREMITIES: Neurovascularly intact x4. Postop dressing is clean, dry, and intact. PLAN: Plan will be to continue supportive care and have the patient work with physical occupational therapy tomorrow and discuss placement at that time. Job ID: [id number]
[2018-12-15] MEDS: traMADol HCl 50 MG TAB PO SCH ×3 (03:37→17:36)
[2018-12-15] MEDS: Acetaminophen 500 MG TAB PO SCH ×4 (03:37→20:52)
[2018-12-15 05:02] LABS: #Basophils 0.1 thou/uL (0.0-0.2); #Eosinphils 0.1 thou/uL (0.0-0.7); #Monocytes 0.6 thou/uL (0.11-0.59); %Basophils 0.3 % (0.0-1.0); %Eosinophils 0.9 % (0.0-10.0); %Lymphocytes 6.1 % (21.0-51.0); %Monocytes 3.8 % (0.0-10.0); %Neutrophils 88.9 % (42.0-75.0); Hemoglobin 12.4 g/dL (14.0-18.0); Mean Corpuscular HGB CONC 32.8 g/dL (32.0-36.0); Mean Corpuscular Hemoglobin 31.1 pg (27.0-31.0); Mean Corpuscular Volume 94.6 fL (78.0-98.0); Mean Platelet Volume 7.3 fL (7.4-10.4); Platelet Count 258 thou/uL (130-400); RBC Distribution Width 11.5 % (11.5-14.5); White Blood Cell (WBC) Count 16.9 thou/uL (4.8-10.8)
[2018-12-15 05:23] LABS: Anion Gap 12 mmol/L (10-20); BUN (Urea Nitrogen) 9 mg/dL (8.4-25.7); Calc. Creatinine Clearance 97 mL/min (70-130); Carbon Dioxide 25 mmol/L (23-31); Chloride 101 mmol/L (98-107); Estimated GFR-MDRD Greater than 90; Glucose 109 mg/dL (83-110); Magnesium 1.7 mg/dL (1.6-2.6); Phosphorus 3.3 mg/dL (2.3-4.7); Potassium 3.7 mmol/L (3.5-5.1); Sodium 134 mmol/L (136-145)
[2018-12-15] MEDS: Levothyroxine Sodium 50 MCG TAB PO SCH (05:46)
[2018-12-15] MEDS: CEFAZOLIN 2 GM, IV Admixture Fee-Chemo 1 UNITS in Sodium Chloride 0.9% 100 ML IVPB SCH ×2 (05:46→16:24)
[2018-12-15] MEDS: Sodium Chloride 0.9% 1,000 ML IV SCH (07:14)
[2018-12-15] MEDS ORDERED: Aspirin 81 mg Enteric Coated Tablet PO SCH (09:00)
[2018-12-15] MEDS ORDERED: Calcium Polycarbophil 625 MG TAB PO SCH (09:00)
[2018-12-15] MEDS: Polyethylene Glycol 3350 17 GM Packet PO SCH (10:17)
[2018-12-15] MEDS: Aspirin 81 mg Enteric Coated Tablet PO SCH ×2 (10:17→20:53)
[2018-12-15] MEDS: Multivit, Therapeutic 1 TAB PO SCH (10:17)
[2018-12-15] MEDS: Senokot S 8.6-50 MG TAB PO SCH ×2 (10:17→20:54)
[2018-12-15] MEDS: Rasagiline Mesylate 0.5 MG TAB PO SCH (10:18)
[2018-12-15] MEDS: Famotidine 20 MG TAB PO SCH ×2 (10:18→20:53)
[2018-12-15] MEDS: CEFAZOLIN 2 GM in Sodium Chloride 0.9% 100 ML IVPB SCH ×2 (16:07→16:09)
[2018-12-15] MEDS: Gabapentin 100 MG CAP PO SCH ×2 (16:07→20:53)
--- NOTE | 2018-12-15 17:22 | PRG ---
DATE OF SERVICE: 12/15/2018 SUBJECTIVE: The patient is a 73-year-old gentleman, who sustained a left nondisplaced femur neck fracture after a fall. He was taking Eliquis at home. He underwent ORIF of left femur neck fracture yesterday. Postop, he is doing good. He is able to walk 5 steps away from his bed. He is tolerating a regular diet. He had no overnight event, however, this morning, he is a little bit confused. His confusion is wax and wane. He developed mild hallucination. He wanted to go home or go somewhere. No family around to confirm his mental status before he come. His pain is well controlled. His vital signs are adequate. He has sustained urinary retention overnight with 2 times in and out. OBJECTIVE: VITAL SIGNS: Temperature 98, heart rate 72, respiratory rate 18, O2 sat 96% on room air, and blood pressure 151/78. GENERAL: The patient is alert, awake, and oriented x3. He is able to identify where he is and who he is. GCS 15. LUNGS: Clear bilaterally. Heart: Regular rate and rhythm. Abdomen: Soft and nondistended. Normal bowel sounds. EXTREMITIES: Neurovascularly intact x4. Normal range of motion x4. NEUROLOGIC: No focal neurologic deficits. DIAGNOSES: 1. Status post fall. 2. Left femur fracture, postop day #1 ORIF of left femur fracture. 3. History of hypothyroid. 4. BPH. 5. Atrial fibrillation. 6. Hypertension. 7. Delirium. PLAN: We will discuss with Dr. Wang. Consider start him on Seroquel. Consider pain control. Continue gastritis and DVT prophylaxis. Continue PT and OT. Continue rehab screening. The patient probably will go to rehab after stable. Job ID: [id number] [facility]
[2018-12-15] MEDS: Melatonin 3 MG TAB PO PRN (20:52)
[2018-12-15] MEDS: Tamsulosin HCl 0.4 MG CAP PO SCH (20:53)
[2018-12-15] MEDS: Atorvastatin Calcium 10 MG TAB PO SCH (20:53)
[2018-12-15] MEDS: LEVODOPA PO SCH (20:58)
[2018-12-15] MEDS: CARBIDOPA PO SCH (20:58)
[2018-12-16] MEDS ORDERED: traMADol HCl 50 MG TAB PO PRN (01:48)
[2018-12-16] MEDS: Acetaminophen 500 MG TAB PO SCH ×4 (02:24→20:08)
--- NOTE | 2018-12-16 02:25 | PRG ---
DATE OF SERVICE: SUBJECTIVE: The patient is currently on the surgical floor. He is status post ground-level fall, in which he sustained a left subcapital femoral neck fracture. He underwent cannulated screw stabilization of this fracture yesterday. He tolerated it well last night. We were able to get him some good sleep with melatonin, but per the day team, when the patient woke up this morning, he was somewhat confused and agitated, so they have added Seroquel to his medication regimen. Otherwise, he did work with Physical Therapy today. He is tolerating a diet and is otherwise doing well. OBJECTIVE: VITAL SIGNS: Stable. The patient is afebrile. GENERAL: The patient is in bed asleep. The nurses have asked me to not wake him up. He does not appear to be in any distress. His respirations appear nonlabored. ASSESSMENT/PLAN: 1. Status post ground-level fall. 2. Status post cannulated screw stabilization of left hip fracture. Plan will be to continue supportive care, physical and occupational therapy, and discuss placement tomorrow. Job ID: [id number]
[2018-12-16] MEDS: Levothyroxine Sodium 50 MCG TAB PO SCH (05:48)
[2018-12-16] MEDS: Gabapentin 100 MG CAP PO SCH ×3 (08:02→20:08)
[2018-12-16] MEDS: Multivit, Therapeutic 1 TAB PO SCH (08:02)
[2018-12-16] MEDS: Aspirin 81 mg Enteric Coated Tablet PO SCH ×2 (08:02→20:09)
[2018-12-16] MEDS: CARBIDOPA PO SCH ×3 (08:03→20:07)
[2018-12-16] MEDS: Senokot S 8.6-50 MG TAB PO SCH ×2 (08:03→20:10)
[2018-12-16] MEDS: LEVODOPA PO SCH ×3 (08:03→20:07)
[2018-12-16] MEDS: Polyethylene Glycol 3350 17 GM Packet PO SCH (08:03)
[2018-12-16] MEDS: Famotidine 20 MG TAB PO SCH ×2 (08:03→20:09)
[2018-12-16 08:10] LABS: Hemoglobin 11.3 g/dL (14.0-18.0); Mean Corpuscular HGB CONC 33.2 g/dL (32.0-36.0); Mean Corpuscular Hemoglobin 31.4 pg (27.0-31.0); Mean Corpuscular Volume 94.7 fL (78.0-98.0); Mean Platelet Volume 7.3 fL (7.4-10.4); Platelet Count 231 thou/uL (130-400); RBC Distribution Width 11.6 % (11.5-14.5); Red Blood Cell (RBC) Count 3.58 mill/uL (4.70-6.10); White Blood Cell (WBC) Count 9.4 thou/uL (4.8-10.8)
[2018-12-16] MEDS: Rasagiline Mesylate 0.5 MG TAB PO SCH (08:11)
[2018-12-16 08:28] LABS: Anion Gap 10 mmol/L (10-20); BUN (Urea Nitrogen) 10 mg/dL (8.4-25.7); Calc. Creatinine Clearance 97 mL/min (70-130); Calcium 8.8 mg/dL (7.8-10.44); Carbon Dioxide 28 mmol/L (23-31); Chloride 102 mmol/L (98-107); Estimated GFR-MDRD Greater than 90; Glucose 127 mg/dL (83-110); Magnesium 1.8 mg/dL (1.6-2.6); Phosphorus 2.5 mg/dL (2.3-4.7); Potassium 3.4 mmol/L (3.5-5.1); Sodium 137 mmol/L (136-145)
[2018-12-16 09:03] LABS: Eosinophils 2 % (0-10); Hypochromia SLIGHT = 6-15 cells (100X) (0-5/hpf); Large Platelets SLIGHT; Lymphocytes 9 % (21-51); MDiff Complete? YES; Monocytes 6 % (0-10); Neutrophil 83 % (42-75); Platelet Morphology Comment Appears Adequate
--- NOTE | 2018-12-16 18:59 | PRG ---
DATE OF SERVICE: 12/16/2018 SUBJECTIVE: This is a 73-year-old gentleman, who sustained a left nondisplaced femur neck fracture after a fall. He underwent ORIF on the left femur neck fracture. Postop, he is doing good. He is tolerating regular diet. No overnight events. He has hallucinations from yesterday and better after Seroquel. PT/OT is able to work with him and recommend rehab or SNF placement. OBJECTIVE: GENERAL: The patient is alert and oriented x3. VITAL SIGNS: Temperature 98, heart rate 70, respiratory rate 18, O2 saturation 96% on room air, and blood pressure 140/70. LUNGS: Clear bilaterally. HEART: Regular rate and rhythm. ABDOMEN: Soft and nondistended. Normal bowel sounds. EXTREMITIES: Neurology intact x4. Normal range of motion x4. NEUROLOGIC: No focal neurological deficits. DIAGNOSES: 1. Status post fall. 2. Left femur fracture postop day #2 open reduction and internal fixation of left femur fracture. 3. History of hypothyroid. 4. BPH. 5. Atrial fibrillation. 6. Hypertension. 7. Delirium, resolved. PLAN: Continue pain control. Continue PT/OT. Continue DVT and gastritis prophylaxis. transportation maintenance worker is working on his placement either rehab or SNF. The patient was seen and evaluated with Dr. Wang this morning. Job ID: [id number]
[2018-12-16] MEDS: Tamsulosin HCl 0.4 MG CAP PO SCH (20:08)
[2018-12-16] MEDS: Atorvastatin Calcium 10 MG TAB PO SCH (20:09)
[2018-12-16] MEDS: Melatonin 3 MG TAB PO PRN (22:23)
[2018-12-17] MEDS: Acetaminophen 500 MG TAB PO SCH ×4 (01:54→19:35)
[2018-12-17 04:37] LABS: Anion Gap 10 mmol/L (10-20); BUN (Urea Nitrogen) 11 mg/dL (8.4-25.7); Calc. Creatinine Clearance 101 mL/min (70-130); Calcium 9.4 mg/dL (7.8-10.44); Carbon Dioxide 29 mmol/L (23-31); Chloride 100 mmol/L (98-107); Estimated GFR-MDRD Greater than 90; Glucose 105 mg/dL (83-110); Magnesium 1.8 mg/dL (1.6-2.6); Potassium 3.5 mmol/L (3.5-5.1); Sodium 135 mmol/L (136-145)
[2018-12-17] MEDS: Levothyroxine Sodium 50 MCG TAB PO SCH (04:59)
[2018-12-17] MEDS ORDERED: Potassium Phosphate 15 MMOL in Sodium Chloride 0.9% 250 ML 250 ML IVPB SCH (08:00)
--- NOTE | 2018-12-17 08:03 | PRG ---
DATE OF SERVICE: 12/17/2018 SUBJECTIVE: The patient remains on the surgical floor. He is status post a ground level fall when he sustained a left hip fracture. He underwent cannulated screw stabilization of this fracture. He is postop day 2 from this. The patient reportedly had no events during the day. Unfortunately, last night he was very restless to include he was pulling at things and he actually pulled his Allen catheter out. The nurses reported small amount of blood at the tip of his penis and on the tip of the catheter, but no gross hematuria. The patient did not appear to be in any discomfort. OBJECTIVE: VITAL SIGNS: Stable. The patient is afebrile. GENERAL: The patient is currently asleep in bed. I did not awaken him for my exam. LUNGS: Clear to auscultation bilaterally. HEART: Regular rate and rhythm. ABDOMEN: Soft, flat with active bowel sounds. EXTREMITIES: Neurovascularly intact. ASSESSMENT: 1. Status post ground level fall. 2. Status post cannulated screw stabilization of left hip fracture. 3. Questionable urethral injury from the patient removing his own Allen catheter. PLAN: Plan will be to continue supportive care. We will observe for gross hematuria. If this occurs, we will consult Urology. Also if the patient requires a Allen during the stay, we will also consult Urology, when to be placed by them. Otherwise, we will continue pain management. We will adjust his Seroquel to 100 mg at night. Tomorrow, we will discuss placement with Case Management. Job ID: [id number]
[2018-12-17] MEDS: CARBIDOPA PO SCH ×3 (09:00→19:34)
[2018-12-17] MEDS: LEVODOPA PO SCH ×3 (09:00→19:34)
[2018-12-17] MEDS: Aspirin 81 mg Enteric Coated Tablet PO SCH ×2 (09:02→19:35)
[2018-12-17] MEDS: Senokot S 8.6-50 MG TAB PO SCH ×2 (09:02→19:37)
[2018-12-17] MEDS: Gabapentin 100 MG CAP PO SCH ×3 (09:02→19:35)
[2018-12-17] MEDS: Multivit, Therapeutic 1 TAB PO SCH (09:02)
[2018-12-17] MEDS: Famotidine 20 MG TAB PO SCH ×2 (09:02→19:35)
[2018-12-17] MEDS: Polyethylene Glycol 3350 17 GM Packet PO SCH (09:03)
[2018-12-17] MEDS: Rasagiline Mesylate 0.5 MG TAB PO SCH (09:08)
--- NOTE | 2018-12-17 16:47 | PRG ---
DATE OF SERVICE: 12/17/2018 This is Josh Chatman PA-C dictating a report for Helio Wang DO. SUBJECTIVE: This is a 73-year-old male, who sustained a left nondisplaced femur fracture after a fall. He underwent ORIF of the left femur neck fracture. Postop, the patient is doing good. He is tolerating up his diet. Last night, he has pulled his Allen out. He is able to work with PT and OT. OBJECTIVE: GENERAL: The patient is lying down comfortable in bed, alert and oriented x3. VITAL SIGNS: Temperature 97.7, heart rate 82, respiratory rate 14, O2 saturation 99% on room air, and blood pressure 130/84. LUNGS: Clear bilaterally. HEART: Regular rate and rhythm. ABDOMEN: Soft, nondistended. Normal bowel sounds. EXTREMITIES: Neurology intact. Normal range of motion x4. NEUROLOGIC: No focal neurology deficits. DIAGNOSES: 1. Status post fall. 2. Left femur fracture, postoperative day 3, open reduction and internal fixation of left femur fracture. 3. History of hypothyroid. 4. Benign prostatic hyperplasia. 5. Atrial fibrillation. 6. Hypertension. 7. Delirium, improved. PLAN: Continue pain control. Continue PT and OT. Continue DVT and gastritis prophylaxis. Regulatory Product Manager is working with the patient on his placement in rehab. The patient was seen and evaluated with Dr. Wang this morning. Job ID: [id number] [facility]TD[facility]
[2018-12-17] MEDS: Tamsulosin HCl 0.4 MG CAP PO SCH (19:36)
[2018-12-17] MEDS: Atorvastatin Calcium 10 MG TAB PO SCH (19:36)
[2018-12-17] MEDS: Melatonin 3 MG TAB PO PRN (19:59)
[2018-12-17] MEDS: Zolpidem Tartrate 5 MG TAB PO PRN (20:48)
--- NOTE | 2018-12-18 03:00 | PRG ---
DATE OF SERVICE: 12/18/2018 SUBJECTIVE: The patient remains on the surgical floor. He is status post ground level fall when he sustained a left hip fracture. He is postop day #2 from cannulated screw stabilization of his left hip fracture. Last night, the patient had issues with agitation and could actually discontinue his own Allen catheter. Today, he has not had any gross hematuria. He has been calm and he was able to work with Physical and Occupational Therapy. PHYSICAL EXAMINATION: VITAL SIGNS: Stable. The patient is afebrile. GENERAL: The patient is resting comfortably in bed. He is awake and responds to simple questions and follows simple commands. LUNGS: Clear to auscultation bilaterally. HEART: Regular rate and rhythm. ABDOMEN: Soft, flat with active bowel sounds. ASSESSMENT: 1. Status post ground level fall. 2. Status post cannulated screw stabilization of a left hip fracture. PLAN: Continue supportive care and await placement decision. Job ID: [id number]
[2018-12-18] MEDS: Acetaminophen 500 MG TAB PO SCH ×4 (03:28→20:10)
[2018-12-18] MEDS: Levothyroxine Sodium 50 MCG TAB PO SCH (06:24)
[2018-12-18] MEDS: Famotidine 20 MG TAB PO SCH ×2 (10:27→20:11)
[2018-12-18] MEDS: LEVODOPA PO SCH ×3 (10:27→20:07)
[2018-12-18] MEDS: Aspirin 81 mg Enteric Coated Tablet PO SCH ×2 (10:27→20:11)
[2018-12-18] MEDS: CARBIDOPA PO SCH ×3 (10:27→20:07)
[2018-12-18] MEDS: Senokot S 8.6-50 MG TAB PO SCH ×2 (10:28→20:13)
[2018-12-18] MEDS: Rasagiline Mesylate 0.5 MG TAB PO SCH (10:28)
[2018-12-18] MEDS: Gabapentin 100 MG CAP PO SCH ×3 (10:28→20:12)
[2018-12-18] MEDS: Multivit, Therapeutic 1 TAB PO SCH (10:28)
[2018-12-18] MEDS: Polyethylene Glycol 3350 17 GM Packet PO SCH (10:31)
[2018-12-18] MEDS ORDERED: traMADol HCl 50 MG TAB PO SCH (14:00)
--- NOTE | 2018-12-18 14:43 | PRG ---
DATE OF SERVICE: 12/18/2018 SUBJECTIVE: This is a 73-year-old gentleman who came in for evaluation of the left hip pain after a fall at home. He underwent ORIF of left femur fracture. Postop, the patient is doing good. He tolerated his diet. He has developed delirium during postop period. His delirium has been better. His retention improved. He is able to urinate by himself. He is able to work with PT/OT. When we saw him, he is walking around the [place] with no difficulty. OBJECTIVE: GENERAL: The patient is walking around the [place], in no acute distress. VITAL SIGNS: Temperature 97.7, pulse 87, respiratory rate 16, O2 saturation 97 % on room air, blood pressure 133/75. LUNGS: Clear bilaterally. HEART: Regular rate and rhythm. ABDOMEN: Soft, nondistended. Normal bowel sounds. EXTREMITIES: Neurovascularly intact. Normal range of motion x4. NEUROLOGY: No focal neurology deficits. DIAGNOSES: 1. Status post fall. 2. Left femur fracture, postoperative day 4, open reduction and internal fixation of left femur fracture. 3. History of hypothyroid. 4. Benign prostatic hyperplasia. 5. Atrial fibrillation. 6. Hypertension. 7. Delirium, improved. PLAN: Continue pain control. Continue PT and OT. Continue DVT and gastritis prophylaxis. box worker is working with the patient for placement in acute rehab facility. The patient was seen and evaluated with Dr. Wang on round this morning. Job ID: [id number] MTDD
[2018-12-18] MEDS: Tamsulosin HCl 0.4 MG CAP PO SCH (20:11)
[2018-12-18] MEDS: Atorvastatin Calcium 10 MG TAB PO SCH (20:12)
[2018-12-18] MEDS: Melatonin 3 MG TAB PO PRN (20:34)
[2018-12-18] MEDS: Zolpidem Tartrate 5 MG TAB PO PRN (20:34)
--- NOTE | 2018-12-19 02:02 | PRG ---
DATE OF SERVICE: SUBJECTIVE: The patient is currently on the surgical floor. He is status post a ground-level fall, in which he sustained a left femoral neck fracture. He has undergone percutaneous cannulated screw stabilization of his hip. He tolerated that well. He has been working with Physical and Occupational Therapy, and I am told he has been making progress with them. He had a good day today. Last night, he rested better than previous night. He is tolerating a diet. His pain is controlled. PHYSICAL EXAMINATION: VITAL SIGNS: Stable. The patient is afebrile. GENERAL: The patient is resting comfortably in bed. He is awake. He is appropriate, answers simple questions and follows simple commands, and he tells me that he has no complaints at this time. LUNGS: Clear to auscultation bilaterally. HEART: Regular rate and rhythm. ABDOMEN: Soft, flat, with active bowel sounds. EXTREMITIES: Neurovascularly intact. ASSESSMENT/PLAN: 1. Status post ground-level fall. 2. Status post cannulated screw stabilization of left hip. Plan will be to continue encouraging physical and occupational therapy, supportive care, and await final placement decision. Job ID: [id number]
[2018-12-19] MEDS: Acetaminophen 500 MG TAB PO SCH ×3 (03:31→13:30)
[2018-12-19] MEDS: Levothyroxine Sodium 50 MCG TAB PO SCH (06:37)
[2018-12-19 07:32] VITALS: TEMP 97.5
[2018-12-19] MEDS ORDERED: Apixaban 5 MG TAB PO SCH (09:00)
[2018-12-19] MEDS: LEVODOPA PO SCH (09:13)
[2018-12-19] MEDS: CARBIDOPA PO SCH (09:13)
[2018-12-19] MEDS: Senokot S 8.6-50 MG TAB PO SCH (09:15)
[2018-12-19] MEDS: Famotidine 20 MG TAB PO SCH (09:15)
[2018-12-19] MEDS: Multivit, Therapeutic 1 TAB PO SCH (09:15)
[2018-12-19] MEDS: Gabapentin 100 MG CAP PO SCH ×2 (09:15→14:51)
[2018-12-19] MEDS: Polyethylene Glycol 3350 17 GM Packet PO SCH (09:16)
[2018-12-19] MEDS: Rasagiline Mesylate 0.5 MG TAB PO SCH (09:18)
[2018-12-19] MEDS: Aspirin 81 mg Enteric Coated Tablet PO SCH (11:46)
[2018-12-19] MEDS ORDERED: CARBIDOPA PO SCH (15:00)
[2018-12-19] MEDS ORDERED: LEVODOPA PO SCH (15:00)
[2018-12-19 15:20] VITALS: BP 165/90
--- NOTE | 2018-12-19 23:29 | DIS ---
DATE OF ADMISSION: 12/13/2018 DATE OF DISCHARGE: 12/19/2018 This is Michelle Lew NP dictating a report for Dr. Wang. CONSULT: Orthopedic Surgery, Dimitri Beverly MD PROCEDURES PERFORMED: 1. On 12/13/2018, AP pelvis. Impression; left femoral neck fracture. 2. On 12/13/2018, left hip. Impression; nondisplaced fracture of the left femoral neck. 3. On 12/14/2018, cannulated screw stabilization of the left femoral neck by Dr. Beverly. PRIMARY DIAGNOSIS: Status post ground level fall with left femoral neck fracture. SECONDARY DIAGNOSES: Type 2 diabetes, hypothyroidism, Parkinson disease, atrial fibrillation, hyperlipidemia. DISCHARGE MEDICATIONS: 1. Tylenol 1000 mg q.6 hours. 2. Eliquis 5 mg p.o. b.i.d. 3. Flexeril 10 mg 3 times a day as needed for muscle spasms. 4. Pepcid 20 mg b.i.d. 5. Gabapentin 100 mg 3 times a day. 6. Ibuprofen 600 mg q.8 hours p.r.n. pain. 7. Synthroid 50 mcg daily. 8. Melatonin 3 mg p.o. as needed at bedtime. 9. Multivitamin daily. 10. MiraLAX as needed. 11. Azilect 1 mg p.o. q.a.m. 12. Senokot as needed. 13. Zocor 20 mg p.o. q.a.m. 14. FiberCon 625 mg p.o. daily. 15. Carbidopa/levodopa 48.75 mg/195 mg p.o. 3 times a day. DISCONTINUED MEDICATIONS: There are no discontinued medications. HISTORY OF PRESENT ILLNESS AND HOSPITAL COURSE: This is a 73-year-old gentleman, who was pulling his garage door down manually when it suddenly accelerated and knocked him to the ground, landing on his left hip. There was no loss of consciousness, brought the patient to [facility] Emergency Department where he underwent evaluation and examination, and was noted to have a left nondisplaced femoral neck fracture. The patient was admitted to Trauma Services and Orthopedics. Orthopedic consult was placed. The patient's Eliquis was held prior to surgery. The patient was then restarted on his Eliquis postop. The patient progressed with physical therapy during his hospital stay. On the day of discharge, the patient was examined by Dr. Wang. The patient had no complaints. The patient was awake, alert, sitting up in the chair, eating breakfast. The patient's vital signs were stable on the day of discharge and exam was unremarkable including cardiopulmonary and GI exam. The patient was deemed stable for discharge to inpatient rehab for continued physical and occupational therapy. DISPOSITION: Stable. DISCHARGE INSTRUCTIONS: 1. Location: Inpatient rehab. 2. Diet: Regular diet. 3. Activity: Orthopedic limitations, 50% weightbearing in left lower extremity. 4. Followup: Follow up with Dr. Beverly in 2 weeks. Follow up with primary care physician as needed. Job ID: [id number]
== END 2018-12-19 16:20 | DRG 481 ==
LOC: SCSER 21:10 → SURG A 23:34
PROVIDERS: ADMIT Surgery; ATTEND Surgery
PROC: 0QH704Z Insertion of Internal Fixation Device into Left Upper Femur, Open Approach (ICD-10-PCS; principal; 2018-12-14)
DX: S72.001A Fracture of unspecified part of neck of right femur, initial encounter for closed fracture (principal); F05 Delirium due to known physiological condition; E11.9 Type 2 diabetes mellitus without complications; E03.9 Hypothyroidism, unspecified; E78.00 Pure hypercholesterolemia, unspecified; I48.91 Unspecified atrial fibrillation; G20 Parkinson's disease; Z87.442 Personal history of urinary calculi; Z79.82 Long term (current) use of aspirin; Z79.899 Other long term (current) drug therapy; Z79.890 Hormone replacement therapy; Z79.01 Long term (current) use of anticoagulants; W18.30XA Fall on same level, unspecified, initial encounter; N40.0 Benign prostatic hyperplasia without lower urinary tract symptoms; I10 Essential (primary) hypertension
CPT/HCPCS: 36415; 72170; 76000; 80048; 80053; 83735; 84100; 84484; 85007; 85025; 85027; 85610; 85730; 86850; 86900; 86901; 93005; C1713; C1769; J0131; J0690; J1885; J2270; J3010; J3490; J7050

== ENCOUNTER 2019-01-26 08:02 | Outpatient (CLI) | payer MEDICARE, BC ==
--- NOTE | 2019-01-26 09:36 | RAD ---
Double contrast barium swallow CLINICAL HISTORY: Dysphagia FINDINGS: Demurrage Worker imaging reveals hyperinflated lungs. There is no lobar consolidation. Patient was administered effervescent crystals followed by liquid barium. Subsequent to a few initial swallows of contrast, the patient began coughing. There is contrast that opacifies the bronchial airway. This is related to aspiration of liquid barium during the exam and therefore the exam was ter minated. The contrast which did enter the esophagus freely passed into the stomach without holdup. Evaluation is otherwise limited, due to the patient's aspiration and subsequent termination of the imaging exam. IMPRESSION: Tracheal aspiration. Examination was therefore terminated. Consider follow-up with dedicated speech pathology evaluation and modified barium swallow. Telephone call placed to Dr. Mcgregor's nurse, after completion of the exam.
== END 2019-01-26 08:03 | disposition home or self-care (01) ==
LOC: RAD 08:02
PROVIDERS: ATTEND Internal Medicine Gastroenterology
DX: R13.10 Dysphagia, unspecified (principal); T17.420A Food in trachea causing asphyxiation, initial encounter
CPT/HCPCS: 74220

== ENCOUNTER 2019-03-28 08:49 | Outpatient (CLI) | payer MEDICARE, BC ==
--- NOTE | 2019-03-29 21:50 | RAD ---
Modified barium swallow with speech therapist: DATE: 03/28/2019 HISTORY: 74-year-old male with dysphagia, unspecified, and T 65.94XA toxic effect of unspecified substance, un determined, initial encounter. Pulmonary aspiration. Parkinson's disease G20. FINDINGS: Severe residue in vallecula and piriform sinuses, worse very poor clearance upon repeated swallows. N oninversion of the epiglottis. There is laryngeal elevation and hilar protraction. Episodes of penetration and aspiration. IMPRESSION: 1. Severe pharyngeal dysphagia: 2. Noninversion of the epiglottis. 3. Severe residue in vallecula and piriform sinuses with ineffective clearance despite multiple repea t swallows. 4. Penetration and aspiration.
== END 2019-03-28 08:50 | disposition home or self-care (01) ==
PROVIDERS: ATTEND Internal Medicine Gastroenterology
DX: R13.13 Dysphagia, pharyngeal phase (principal); T65.94XA Toxic effect of unspecified substance, undetermined, initial encounter; J39.2 Other diseases of pharynx
CPT/HCPCS: 74230

== ENCOUNTER 2020-03-09 10:45 | Inpatient (IN) | payer MEDICARE, BC ==
[2020-03-09 11:07] LABS: #Lymphocytes 1.3 thou/uL (1.20-3.40); #Monocytes 0.4 thou/uL (0.11-0.59); #Neutrophils 9.2 thou/uL (1.40-6.50); %Basophils 0.3 % (0.0-1.0); %Eosinophils 0.3 % (0.0-10.0); %Lymphocytes 11.7 % (21.0-51.0); %Neutrophils 83.7 % (42.0-75.0); Hemoglobin 12.4 g/dL (14.0-18.0); Mean Corpuscular HGB CONC 33.2 g/dL (32.0-36.0); Mean Corpuscular Volume 93.5 fL (78.0-98.0); Mean Platelet Volume 7.4 fL (7.4-10.4); Platelet Count 321 thou/uL (130-400); RBC Distribution Width 12.4 % (11.5-14.5)
[2020-03-09 11:27] LABS: ALT (SGPT) 9 U/L (8-55); AST (SGOT) 18 U/L (5-34); Alkaline Phosphatase 91 U/L (40-110); Anion Gap 13 mmol/L (10-20); BUN (Urea Nitrogen) 11 mg/dL (8.4-25.7); Bilirubin, Total 0.7 mg/dL (0.2-1.2); Calc. Creatinine Clearance 0 mL/min (70-130); Calcium 9.3 mg/dL (7.8-10.44); Carbon Dioxide 29 mmol/L (23-31); Chloride 100 mmol/L (98-107); Estimated GFR-MDRD Greater than 90; Globulin 2.4 g/dL (2.4-3.5); Glucose 120 mg/dL (83-110); Potassium 4.1 mmol/L (3.5-5.1); Protein, Total 6.4 g/dL (5.8-8.1); Sodium 138 mmol/L (136-145)
[2020-03-09 11:32] LABS: Acetaminophen Less than 6.0 mcg/mL (10.0-30.0); Alcohol Less than 10 mg/dL (Less than 10); Salicylate Less than 8.0 mg/dL (15.0-30.0)
[2020-03-09 13:12] LABS: Bilirubin Negative (Negative); Blood, Urine Negative (Negative); Clarity Turbid (Clear); Glucose, Urine (Dipstick) Normal (Negative); Ketone, Urine Negative (Negative); Leukocyte Negative Leu/uL (Negative); Nitrite Negative (Negative); Protein, Urine (Dipstick) Negative (Neg-Trace); Specific Gravity, Urine 1.014 (1.002-1.036); Urobilinogen Normal mg/dL (Less than 2); pH, Urine 6.5 (5.0-9.0)
--- NOTE | 2020-03-09 13:58 | RAD ---
PORTABLE CHEST: Date: 03-09-2020 PROVIDED CLINICAL HISTORY: Altered mental status FINDINGS: Comparison 02-20-2020. Cardiac and mediastinal silhouette is within normal limits. Chronic obstructive changes are re-demons trated. No focal consolidation, pleural fluid, or pneumothorax apparent. IMPRESSION: No evidence for an acute cardiopulmonary process. POS: SHYLA
--- NOTE | 2020-03-09 14:17 | CT ---
CT BRAIN: Date: 03-09-2020 PROVIDED CLINICAL HISTORY: Altered mental status. FINDINGS: Comparison 02-20-2020. The ventricular system is unchanged in size and morphology. There is no evidence for intracranial hem orrhage or mass effect. The extracranial soft tissues and osseous structures demonstrate no acute fin dings. IMPRESSION: No evidence for intracranial hemorrhage or mass effect. POS: SHYLA
[2020-03-09] MEDS ORDERED: Acetaminophen 325 MG TAB PO PRN (16:57)
[2020-03-09] MEDS ORDERED: Ondansetron PF 4 MG/2 ML Vial IVP PRN (16:57)
[2020-03-09] MEDS ORDERED: Melatonin 3 MG TAB PO PRN (17:05)
--- NOTE | 2020-03-09 17:17 | PDOC.HHP ---
Hospitalist HPI - History of Present Illness AMS, possible seizures History of Present Illness: 75 YO M with a PMH of Parkinson's dz and Hypotension who was brought in on account of possible seizures followed by prolonged AMS. Hx was obtained from pt's son who says pt was on his recliner where he was noted to have" convulsions". His body was shaking for several minutes and when the son touched him to attemp to calm him down, it did not nathalie but continued. Pt was altered at this time. The "convulsions" then stopped spontaneously and pt went into a deep altered state. Pt tried to wake him for a long time and he was difficult to rouse and when he did, he was also confused. Pt's son denied prior F/C/N/V or urinary symps. No new med changes. No prior convulsion or seizure hx. EMS was called and pt was brought to the hospital where he has been admitted for further w/o. Hospitalist ROS - Review of Systems ROS unobtainable: due to mental status Neurological: reports: incoordination, change in speech, confusion, seizures Hospitalist History - Past Medical History Cardiac: reports: Other (Hypotension) LINING BASTER: reports: Other (Parkinson's dz) - Past Surgical History Past Surgical History: reports: Other (Hip fracture sx) - Family History Family History: reports: cardiac disorder - Social History Smoking Status: Never smoker Alcohol: reports: None, Occassional Living Situation: Alone Domestic Violence: Negative Occupation: retired Activity level: independent ambulation - Exam General Appearance: NAD General - other findings: Drowsy Eye: PERRL, anicteric sclera ENT: normocephalic atraumatic, no oropharyngeal lesions Neck: supple, symmetric, no JVD, no thyromegaly Heart: RRR, no murmur, no gallops, no rubs Respiratory: CTAB, no wheezes, no rales, no ronchi, normal chest expansion Gastrointestinal: soft, non-tender, non-distended, normal bowel sounds Extremities: no cyanosis, no clubbing, no edema Skin: no lesions, no rashes Neurological: cranial nerve grossly intact, normal sensation to touch Neurological - other findings: Unable to fully assess Musculoskeletal: no muscle wasting Psychiatric: somnolent Hospitalist Results - Labs Result Diagrams: 03/09/20 10:59 03/09/20 10:59 Lab results: WBC 11.0 thou/uL (4.8-10.8) H 03/09/20 10:59 Hgb 12.4 g/dL (14.0-18.0) L 03/09/20 10:59 Hct 37.4 % (42.0-52.0) L 03/09/20 10:59 MCV 93.5 fL (78.0-98.0) 03/09/20 10:59 Plt Count 321 thou/uL (130-400) 03/09/20 10:59 Neutrophils % 83.7 % (42.0-75.0) H 03/09/20 10:59 Sodium 138 mmol/L (136-145) 03/09/20 10:59 Potassium 4.1 mmol/L (3.5-5.1) 03/09/20 10:59 Chloride 100 mmol/L (98-107) 03/09/20 10:59 Carbon Dioxide 29 mmol/L (23-31) 03/09/20 10:59 BUN 11 mg/dL (8.4-25.7) 03/09/20 10:59 Creatinine 0.73 mg/dL (0.7-1.3) 03/09/20 10:59 Glucose 120 mg/dL (83-110) H 03/09/20 10:59 Calcium 9.3 mg/dL (7.8-10.44) 03/09/20 10:59 Total Bilirubin 0.7 mg/dL (0.2-1.2) 03/09/20 10:59 AST 18 U/L (5-34) 03/09/20 10:59 ALT 9 U/L (8-55) 03/09/20 10:59 Alkaline Phosphatase 91 U/L (40-110) 03/09/20 10:59 Serum Total Protein 6.4 g/dL (5.8-8.1) 03/09/20 10:59 Albumin 4.0 g/dL (3.4-4.8) 03/09/20 10:59 Urine Ketones Negative mg/dL (Negative) 03/09/20 12:11 Urine Blood Negative (Negative) 03/09/20 12:11 Urine Nitrite Negative (Negative) 03/09/20 12:11 Ur Leukocyte Esterase Negative Andrew/uL (Negative) 03/09/20 12:11 Hospitalist H&P A/P - Problem (1) AMS (altered mental status) Code(s): R41.82 - ALTERED MENTAL STATUS, UNSPECIFIED Status: Acute Qualifiers: Altered mental status type: disorientation Qualified Code(s): R41.0 - Disorientation, unspecified Assessment and Plan: Unclear etiology. maybe a post seizure ictal phase. Have ordered an EEG and MRI. Will f/u w results. Neuro has also been consulted, will f/u with their recs. (2) Convulsions Status: Acute Assessment and Plan: Unclear if they are seizures. Will f/u w MRI and EEG results. keep on Neuro checks and seizure precautions. (3) Orthostatic hypotension due to Parkinson's disease Code(s): G90.3 - MULTI-SYSTEM DEGENERATION OF THE AUTONOMIC NERVOUS SYSTEM Status: Chronic Assessment and Plan: Cont midodrine. (4) Parkinson disease Code(s): G20 - PARKINSON'S DISEASE Status: Chronic Assessment and Plan: Cont Carbidopa. - Plan Plan: PPx: heparin and Pepcid. CODE: FULL. Dispo: Admit as observation.
[2020-03-09] MEDS ORDERED: CARBIDOPA PO SCH (21:00)
[2020-03-09] MEDS ORDERED: LEVODOPA PO SCH (21:00)
[2020-03-09] MEDS ORDERED: Apixaban 5 MG TAB PO SCH (21:00)
[2020-03-09] MEDS ORDERED: Gabapentin 100 MG CAP PO SCH (21:00)
[2020-03-10] MEDS ORDERED: LEVODOPA PO SCH (00:13)
[2020-03-10] MEDS ORDERED: CARBIDOPA PO SCH (00:13)
[2020-03-10] MEDS: Famotidine 20 MG TAB PO SCH ×3 (00:38→22:14)
[2020-03-10] MEDS ORDERED: Apixaban 5 MG TAB PO SCH (00:45)
[2020-03-10] MEDS ORDERED: Carbidopa/Levodopa CR 50-200 mg Tablet PO SCH (00:45)
[2020-03-10 04:35] LABS: #Basophils 0.1 thou/uL (0.0-0.2); #Eosinphils 0.1 thou/uL (0.0-0.7); #Lymphocytes 1.4 thou/uL (1.20-3.40); #Monocytes 0.5 thou/uL (0.11-0.59); #Neutrophils 4.2 thou/uL (1.40-6.50); %Basophils 0.9 % (0.0-1.0); %Eosinophils 1.1 % (0.0-10.0); %Lymphocytes 22.5 % (21.0-51.0); %Neutrophils 67.4 % (42.0-75.0); Hemoglobin 12.2 g/dL (14.0-18.0); Mean Corpuscular HGB CONC 32.7 g/dL (32.0-36.0); Mean Corpuscular Hemoglobin 30.6 pg (27.0-31.0); Mean Corpuscular Volume 93.5 fL (78.0-98.0); Mean Platelet Volume 7.5 fL (7.4-10.4); Platelet Count 297 thou/uL (130-400); RBC Distribution Width 12.4 % (11.5-14.5); Red Blood Cell (RBC) Count 3.97 mill/uL (4.70-6.10); White Blood Cell (WBC) Count 6.3 thou/uL (4.8-10.8)
[2020-03-10 05:02] LABS: Anion Gap 14 mmol/L (10-20); BUN (Urea Nitrogen) 9 mg/dL (8.4-25.7); Calc. Creatinine Clearance 84 mL/min (70-130); Carbon Dioxide 24 mmol/L (23-31); Cardiac Risk 2.3 (Less than 4.5); Chloride 101 mmol/L (98-107); Cholesterol 115 mg/dl (< 200 Desired); Estimated GFR-MDRD Greater than 90; Glucose 90 mg/dL (83-110); HDL Cholesterol 49 mg/dL (>60 Neg Risk); LDL Cholesterol, Calculated 59 mg/dL; Potassium 3.9 mmol/L (3.5-5.1); Sodium 135 mmol/L (136-145); Triglycerides 34 mg/dL (Less than 150)
[2020-03-10] MEDS: Levothyroxine Sodium 50 MCG TAB PO SCH (06:26)
[2020-03-10] MEDS: Carbidopa/Levodopa CR 50-200 mg Tablet PO SCH ×2 (08:25→22:14)
[2020-03-10] MEDS: Aspirin 81 mg Enteric Coated Tablet PO SCH (08:25)
[2020-03-10] MEDS: Apixaban 5 MG TAB PO SCH ×2 (08:25→22:14)
[2020-03-10] MEDS: Multivit, Therapeutic 1 TAB PO SCH (08:26)
[2020-03-10] MEDS: Polyethylene Glycol 3350 17 GM Packet PO SCH (08:26)
[2020-03-10] MEDS: Atorvastatin Calcium 10 MG TAB PO SCH (08:26)
[2020-03-10] MEDS ORDERED: Calcium Polycarbophil 625 MG TAB PO SCH (09:00)
[2020-03-10] MEDS ORDERED: FLU VACC QS2020-21(65YR UP)/PF 240 MCG/0.7 ML SYRINGE IM ONE (09:00)
[2020-03-10 13:10] LABS: SARS-CoV-2 MS2 Positive; SARS-CoV-2 N Gene Negative; SARS-CoV-2 S Gene Negative; SARS-CoV-2 by NAA Not Detected (NotDetected); SARS-CoV-2 orf1ab Negative
--- NOTE | 2020-03-10 13:16 | CON ---
NEUROLOGY CONSULTATION DATE OF CONSULTATION: 03/10/2020 REASON FOR CONSULTATION: Altered mental status, rule out seizures. HISTORY OF PRESENT ILLNESS: Mr. Getachew Genao is a 75-year-old male with medical history significant for Parkinson disease and hypertension, brought to the emergency room because of altered mental status, to rule out possible seizures. The patient is unable to provide the history, so history is obtained from review of the medical records. Per records, the patient's son found him in a recliner, having shaking of the body for several minutes. When the son touched him in an attempt to calm him down, he was not able to abort the abnormal body movements, and the patient was extremely confused at that time. The convulsion stopped spontaneously and then he was extremely confused and was difficult to arouse after that and was difficult to arouse for long period of time. The son denies any nausea, vomiting, headache, chest pain, abdominal pain, recent sick contacts or exposure to COVID. The patient's son denied any prior history of seizures or head injury. He called the EMS and the patient was brought to the hospital for further workup. REVIEW OF SYSTEMS: Unobtainable due to the patient's mental status. PAST MEDICAL HISTORY: Parkinson disease, hypertension. PAST SURGICAL HISTORY: Hip fracture surgery. FAMILY HISTORY: Coronary artery disease. SOCIAL HISTORY: The patient lives alone. He is retired. There is no documented history of smoking, alcohol, or illegal drug use. Allergies: No known drug allergies Vital Signs & Weight: Vital Signs (12 hours) Temp Pulse Resp BP Pulse Ox 03/10/20 12:05 97.8 F 91 18 146/71 H 99 03/10/20 07:22 98.0 F 94 18 164/78 H 97 03/10/20 03:51 97.7 F 76 20 161/71 H 99 Weight Weight 139 lb 11.2 oz I&O: 03/09/20 03/10/20 03/11/20 06:59 06:59 06:59 Intake Total 240 Balance 240 Additional Labs: Accuchecks 03/10/20 03/10/20 03/09/20 10:51 06:17 23:23 POC Glucose 115 H 92 102 H Active Medications Generic Name Dose Route Start Last Admin Trade Name Freq PRN Reason Stop Dose Admin Apixaban 5 mg 03/10/20 09:00 03/10/20 08:25 Apixaban 5 Mg Tab PO 5 mg BID DELMI Administration Aspirin 81 mg 03/10/20 09:00 03/10/20 08:25 Aspirin 81 Mg Enteric Coated Tablet PO 81 mg DAILY DELMI Administration Atorvastatin Calcium 10 mg 03/10/20 09:00 03/10/20 08:26 Atorvastatin Calcium 10 Mg Tab PO 10 mg QAM DELMI Administration Carbidopa/Levodopa 1 tab 03/10/20 09:00 03/10/20 08:25 Carbidopa/Levodopa Cr 50-200 Mg Tablet PO 1 tab BID DELMI Administration Famotidine 20 mg 03/09/20 21:00 03/10/20 08:26 Famotidine 20 Mg Tab PO 20 mg BID DELMI Administration Levothyroxine Sodium 50 mcg 03/10/20 06:00 03/10/20 06:26 Levothyroxine Sodium 50 Mcg Tab PO 50 mcg 0600 DELMI Administration Multivitamins 1 tab 03/10/20 09:00 03/10/20 08:26 Multivit, Therapeutic 1 Tab PO 1 tab DAILY DELMI Administration Polyethylene Glycol 17 gm 03/10/20 09:00 03/10/20 08:26 Polyethylene Glycol 3350 17 Gm Packet PO 17 gm DAILY DELMI Administration PHYSICAL EXAMINATION: General Appearance: NAD General - other findings: Drowsy Eye: PERRL, anicteric sclera ENT: normocephalic atraumatic, no oropharyngeal lesions Neck: supple, symmetric, no JVD, no thyromegaly Heart: RRR, no murmur, no gallops, no rubs Respiratory: CTAB, no wheezes, no rales, no ronchi, normal chest expansion Gastrointestinal: soft, non-tender, non-distended, normal bowel sounds Extremities: no cyanosis, no clubbing, no edema Skin: no lesions, no rashes Neurological: Mental status; the patient is alert, awake, and knows his name. He does not know the place or time. He does not follow commands or maintain eye contact. Cranial nerves; pupils are 4 mm, round and reactive to light. Face symmetric. Tongue midline. Moves neck in both directions. Motor; muscle tone is increased. Bulk is decreased. Moving all 4 extremities. Sensory, withdraws to nailbed pressure bilaterally. Cerebellar, did not cooperate with the testing. Gait deferred due to the patient's safety. DATA REVIEWED: I reviewed the labs which shows hemoglobin of 12.4, hematocrit of 37.4 and mild hyperglycemia 120. WBC 11.0 thou/uL (4.8-10.8) H 03/09/20 10:59 Hgb 12.4 g/dL (14.0-18.0) L 03/09/20 10:59 Hct 37.4 % (42.0-52.0) L 03/09/20 10:59 MCV 93.5 fL (78.0-98.0) 03/09/20 10:59 Plt Count 321 thou/uL (130-400) 03/09/20 10:59 Neutrophils % 83.7 % (42.0-75.0) H 03/09/20 10:59 Sodium 138 mmol/L (136-145) 03/09/20 10:59 Potassium 4.1 mmol/L (3.5-5.1) 03/09/20 10:59 Chloride 100 mmol/L (98-107) 03/09/20 10:59 Carbon Dioxide 29 mmol/L (23-31) 03/09/20 10:59 BUN 11 mg/dL (8.4-25.7) 03/09/20 10:59 Creatinine 0.73 mg/dL (0.7-1.3) 03/09/20 10:59 Glucose 120 mg/dL (83-110) H 03/09/20 10:59 Calcium 9.3 mg/dL (7.8-10.44) 03/09/20 10:59 Total Bilirubin 0.7 mg/dL (0.2-1.2) 03/09/20 10:59 AST 18 U/L (5-34) 03/09/20 10:59 ALT 9 U/L (8-55) 03/09/20 10:59 Alkaline Phosphatase 91 U/L (40-110) 03/09/20 10:59 Serum Total Protein 6.4 g/dL (5.8-8.1) 03/09/20 10:59 Albumin 4.0 g/dL (3.4-4.8) 03/09/20 10:59 Urine Ketones Negative mg/dL (Negative) 03/09/20 12:11 Urine Blood Negative (Negative) 03/09/20 12:11 Urine Nitrite Negative (Negative) 03/09/20 12:11 Ur Leukocyte Esterase Negative Andrew/uL (Negative) 03/09/20 12:11 ASSESSMENT AND PLAN: (1) AMS (altered mental status) Code(s): R41.82 - ALTERED MENTAL STATUS, UNSPECIFIED Status: Acute Qualifiers: Altered mental status type: disorientation Qualified Code(s): R41.0 - Disorientation, unspecified (2) Convulsions Status: Acute (3) Orthostatic hypotension due to Parkinson's disease Code(s): G90.3 - MULTI-SYSTEM DEGENERATION OF THE AUTONOMIC NERVOUS SYSTEM Status: Chronic (4) Parkinson disease Code(s): G20 - PARKINSON'S DISEASE Status: Chronic Mr. Getachew Genao is a 75-year-old male with history significant for Parkinson disease, presented with an episode of altered mental status following a prolonged convulsion. Differential diagnosis includes dyskinesia with altered mental status but seizure cannot be completely ruled out. Consider MRI of the brain to rule out acute intracranial pathology. EEG to rule out underlying seizure activity. Neuro checks every 2 hours. Continue home medications. Continue medical management per primary team. Further recommendations will depend on the results of the testing. PT/OT/Speech. Thank you for the consult. Job ID: [id number] MTDD
--- NOTE | 2020-03-10 13:25 | PDOC.HOSPP ---
- Subjective Encounter Date: 03/10/20 Subjective: Seen w son at bedside. Still having occasional "convulsions". Undergoing EEG when I was in the room. - Objective Vital Signs & Weight: Vital Signs (12 hours) Temp Pulse Resp BP Pulse Ox 03/10/20 12:05 97.8 F 91 18 146/71 H 99 03/10/20 07:22 98.0 F 94 18 164/78 H 97 03/10/20 03:51 97.7 F 76 20 161/71 H 99 Weight Weight 139 lb 11.2 oz I&O: 03/09/20 03/10/20 03/11/20 06:59 06:59 06:59 Intake Total 240 Balance 240 Result Diagrams: 03/10/20 04:19 03/10/20 04:19 Additional Labs: Accuchecks 03/10/20 03/10/20 03/09/20 10:51 06:17 23:23 POC Glucose 115 H 92 102 H Hospitalist ROS - Review of Systems ROS unobtainable: due to mental status Neurological: reports: other (occasional convulsions) - Medication Medications: Active Medications Generic Name Dose Route Start Last Admin Trade Name Freq PRN Reason Stop Dose Admin Apixaban 5 mg 03/10/20 09:00 03/10/20 08:25 Apixaban 5 Mg Tab PO 5 mg BID DELMI Administration Aspirin 81 mg 03/10/20 09:00 03/10/20 08:25 Aspirin 81 Mg Enteric Coated Tablet PO 81 mg DAILY DELMI Administration Atorvastatin Calcium 10 mg 03/10/20 09:00 03/10/20 08:26 Atorvastatin Calcium 10 Mg Tab PO 10 mg QAM DELMI Administration Carbidopa/Levodopa 1 tab 03/10/20 09:00 03/10/20 08:25 Carbidopa/Levodopa Cr 50-200 Mg Tablet PO 1 tab BID DELMI Administration Famotidine 20 mg 03/09/20 21:00 03/10/20 08:26 Famotidine 20 Mg Tab PO 20 mg BID DELMI Administration Levothyroxine Sodium 50 mcg 03/10/20 06:00 03/10/20 06:26 Levothyroxine Sodium 50 Mcg Tab PO 50 mcg 0600 DELMI Administration Multivitamins 1 tab 03/10/20 09:00 03/10/20 08:26 Multivit, Therapeutic 1 Tab PO 1 tab DAILY DELMI Administration Polyethylene Glycol 17 gm 03/10/20 09:00 03/10/20 08:26 Polyethylene Glycol 3350 17 Gm Packet PO 17 gm DAILY DELMI Administration - Exam General Appearance: ill appearing General - other findings: sleepy Eye: PERRL, anicteric sclera ENT: normocephalic atraumatic, no oropharyngeal lesions Neck: supple, symmetric, no JVD, no thyromegaly Heart: RRR, no murmur, no gallops, no rubs Respiratory: CTAB, no wheezes, no rales, no ronchi Gastrointestinal: soft, non-tender, non-distended, normal bowel sounds Extremities: no cyanosis, no clubbing, no edema Neurological: no focal deficits Neurological - other findings: Unable to fully assess. Having EEG now. Musculoskeletal: normal strength, no muscle wasting Psychiatric: somnolent Hosp A/P (1) AMS (altered mental status) Code(s): R41.82 - ALTERED MENTAL STATUS, UNSPECIFIED Status: Acute Qualifiers: Altered mental status type: disorientation Qualified Code(s): R41.0 - Disorientation, unspecified Plan: AMS appears to be alternating. Had a good breakfast this morning. Now sleepy. Will cont to monitor. (2) Convulsions Status: Acute Plan: Still having occasional convulsions. EEG is being done now. MRI yet to be done. Neuro is on board. Will f/u with MRI and EEG results and further Neuro recs. (3) Orthostatic hypotension due to Parkinson's disease Code(s): G90.3 - MULTI-SYSTEM DEGENERATION OF THE AUTONOMIC NERVOUS SYSTEM Status: Chronic Plan: High BP now. Will reduce dose of midodrine. (4) Parkinson disease Code(s): G20 - PARKINSON'S DISEASE Status: Chronic Plan: Stable, cont Carbidopa. - Plan plan discussed w/ family PPx: SCDs. WHITNEY: FULL. Dispo: F/u with EEG and MRI results. F/u with Neuro recs.
--- NOTE | 2020-03-10 15:07 | PDOC.EEG ---
Neurology EEG Report - Report Report: This EEG was performed using 24 channel Vineloop video digital EEG machine with 24 disc electrodes. This was an extended 2 hours 5 minutes of EEG recording. Digital analysis of the EEG was done for Chris and seizure detection which revealed no abnormalities. Background: The posterior background rhythm is 9-10 Hz. Minimal reactivity with eye opening and closure.. Photic stimulation: No response seen with photic stimulation. Hyperventilation: Not performed. Sleep: No stage change was observed. EEG diagnosis: Occasional irregular theta activity seen throughout the recording. Clinical interpretation: This EEG is consistent with mild generalized nonspecific cerebral dysfunction.
--- NOTE | 2020-03-10 15:44 | MRI ---
MRI BRAIN WITHOUT CONTRAST: Date: 03/10/2020 HISTORY: TIA. FINDINGS: Correlation made with previous day's CT scan. No restricted diffusion is seen. No evidence of infarct, hemorrhage, midline shift, or abnormal extra -axial fluid collections are noted. The ventricular size is appropriate and the basilar cisterns are patent. There are foci of T2 prolongation in the periventricular white matter consistent with mild ch ronic small vessel ischemic disease. The visualized paranasal sinuses are well aerated. There is a sm all amount of fluid in the left mastoid air cells. No tonsillar herniation is seen. IMPRESSION: No evidence of acute intracranial process. POS: AH
[2020-03-11 04:15] LABS: #Monocytes 0.6 thou/uL (0.11-0.59); #Neutrophils 10.7 thou/uL (1.40-6.50); %Eosinophils 0.1 % (0.0-10.0); %Lymphocytes 7.9 % (21.0-51.0); %Monocytes 4.8 % (0.0-10.0); %Neutrophils 87.1 % (42.0-75.0); Hemoglobin 11.8 g/dL (14.0-18.0); Mean Corpuscular HGB CONC 32.6 g/dL (32.0-36.0); Mean Corpuscular Hemoglobin 30.5 pg (27.0-31.0); Mean Corpuscular Volume 93.6 fL (78.0-98.0); Mean Platelet Volume 7.5 fL (7.4-10.4); Platelet Count 281 thou/uL (130-400); RBC Distribution Width 12.5 % (11.5-14.5); Red Blood Cell (RBC) Count 3.86 mill/uL (4.70-6.10); White Blood Cell (WBC) Count 12.3 thou/uL (4.8-10.8)
[2020-03-11 04:39] LABS: Anion Gap 14 mmol/L (10-20); BUN (Urea Nitrogen) 13 mg/dL (8.4-25.7); Calc. Creatinine Clearance 83 mL/min (70-130); Carbon Dioxide 25 mmol/L (23-31); Chloride 99 mmol/L (98-107); Estimated GFR-MDRD Greater than 90; Glucose 93 mg/dL (83-110); Sodium 134 mmol/L (136-145)
[2020-03-11] MEDS: Levothyroxine Sodium 50 MCG TAB PO SCH (05:02)
[2020-03-11] MEDS: Aspirin 81 mg Enteric Coated Tablet PO SCH (09:03)
[2020-03-11] MEDS: Famotidine 20 MG TAB PO SCH ×2 (09:03→21:20)
[2020-03-11] MEDS: Atorvastatin Calcium 10 MG TAB PO SCH (09:03)
[2020-03-11] MEDS: Apixaban 5 MG TAB PO SCH ×2 (09:03→21:20)
[2020-03-11] MEDS: Carbidopa/Levodopa CR 50-200 mg Tablet PO SCH ×2 (09:03→21:20)
[2020-03-11] MEDS: Multivit, Therapeutic 1 TAB PO SCH (09:04)
[2020-03-11] MEDS: Polyethylene Glycol 3350 17 GM Packet PO SCH (09:04)
--- NOTE | 2020-03-11 12:10 | PDOC.HOSPP ---
- Subjective Encounter Date: 03/11/20 Encounter Time: 12:08 Subjective: This is a 75-year-old patient with a history of Parkinson disease admitted to the hospital after he had what appeared to be generalized tonic-clonic seizures. He does not have any prior history of seizures. His son was concerned about him and brought him into the hospital to be evaluated further. He is being followed by neurology. An EEG was just obtained that did not show any evidence of acute seizures. I spoke to his son extensively at the bedside this morning. Patient has had multiple changes to his antiepileptic drugs recently. His neurology continues to try to optimize his medicines. He is somewhat awake but slow to respond today when I visited with him. His son was at the bedside and we had a pretty long conversation about the patient's care. - Objective Vital Signs & Weight: Vital Signs (12 hours) Temp Pulse Pulse Pulse Pulse Resp BP 03/11/20 11:12 98.5 F 59 L 19 03/11/20 09:00 74 72 70 134/64 03/11/20 07:38 98.7 F 79 18 03/11/20 03:40 97.8 F 60 20 BP BP BP Pulse Ox 03/11/20 11:12 107/62 95 03/11/20 09:00 128/60 121/62 03/11/20 07:38 154/68 H 96 03/11/20 03:40 123/65 97 Weight Weight 144 lb 8 oz I&O: 03/10/20 03/11/20 03/12/20 06:59 06:59 06:59 Intake Total 240 840 Balance 240 840 Result Diagrams: 03/11/20 03:56 03/11/20 03:56 Additional Labs: Accuchecks 03/11/20 03/10/20 03/10/20 11:01 20:20 17:48 POC Glucose 121 H 122 H 104 H Radiology Reviewed by me: Yes EKG Reviewed by me: Yes Hospitalist ROS - Review of Systems ROS unobtainable: due to mental status Constitutional: reports: weakness, malaise Neurological: reports: weakness, confusion - Medication Medications: Active Medications Generic Name Dose Route Start Last Admin Trade Name Freq PRN Reason Stop Dose Admin Apixaban 5 mg 03/10/20 09:00 03/11/20 09:03 Apixaban 5 Mg Tab PO 5 mg BID DELMI Administration Aspirin 81 mg 03/10/20 09:00 03/11/20 09:03 Aspirin 81 Mg Enteric Coated Tablet PO 81 mg DAILY DELMI Administration Atorvastatin Calcium 10 mg 03/10/20 09:00 03/11/20 09:03 Atorvastatin Calcium 10 Mg Tab PO 10 mg QAM DELMI Administration Carbidopa/Levodopa 1 tab 03/10/20 09:00 03/11/20 09:03 Carbidopa/Levodopa Cr 50-200 Mg Tablet PO 1 tab BID DELMI Administration Famotidine 20 mg 03/09/20 21:00 03/11/20 09:03 Famotidine 20 Mg Tab PO 20 mg BID DELMI Administration Levothyroxine Sodium 50 mcg 03/10/20 06:00 03/11/20 05:02 Levothyroxine Sodium 50 Mcg Tab PO 50 mcg 0600 DELMI Administration Multivitamins 1 tab 03/10/20 09:00 03/11/20 09:04 Multivit, Therapeutic 1 Tab PO 1 tab DAILY DELMI Administration Polyethylene Glycol 17 gm 03/10/20 09:00 03/11/20 09:04 Polyethylene Glycol 3350 17 Gm Packet PO Not Given DAILY DELMI - Exam General Appearance: NAD, awake alert, ill appearing Eye: PERRL ENT: normocephalic atraumatic, moist mucosa Neck: supple, symmetric, no JVD, no thyromegaly, no lymphadenopathy, no carotid bruit Heart: RRR, no murmur, no gallops, no rubs, normal peripheral pulses Respiratory: CTAB, no wheezes, no rales, no ronchi, normal chest expansion, no tachypnea Gastrointestinal: soft, non-tender, non-distended, normal bowel sounds, no palpable masses Extremities: no cyanosis Neurological: no weakness, no focal deficits Musculoskeletal: generalized weakness, diffuse muscle atrophy Psychiatric: flat affect, somnolent Hosp A/P (1) AMS (altered mental status) Code(s): R41.82 - ALTERED MENTAL STATUS, UNSPECIFIED Status: Acute Qualifiers: Altered mental status type: disorientation Qualified Code(s): R41.0 - Disorientation, unspecified (2) Convulsions Status: Acute (3) Paroxysmal atrial fibrillation with RVR Code(s): I48.0 - PAROXYSMAL ATRIAL FIBRILLATION Status: Chronic - Plan PT/OT, speech therapy, out of bed/ambulate, DVT proph w/SCDs #1. Acute metabolic encephalopathy. Likely this may be related to medication changes. There is no infectious etiology on his evaluation so far. He did not have any stroke. There is also question of this was a seizure and neurology continues to eval him. 2. Chronic Parkinson disease. Complicated by hallucinations. His neurology continues to optimize his medicine as outpatient. We appreciate our neurologist for their help on evaluation of this patient. 3. Paroxysmal atrial fibrillation. This is chronic. He does take Eliquis and has been on it for the past 10 years according to his son. This is mostly for stroke prophylaxis.
[2020-03-11 13:38] VITALS: BMI 20.7
[2020-03-12] MEDS: Levothyroxine Sodium 50 MCG TAB PO SCH (07:48)
[2020-03-12] MEDS: Polyethylene Glycol 3350 17 GM Packet PO SCH (08:44)
[2020-03-12] MEDS: Apixaban 5 MG TAB PO SCH (08:47)
[2020-03-12] MEDS: Carbidopa/Levodopa CR 50-200 mg Tablet PO SCH (08:47)
[2020-03-12] MEDS: Multivit, Therapeutic 1 TAB PO SCH (08:47)
[2020-03-12] MEDS: Aspirin 81 mg Enteric Coated Tablet PO SCH (08:47)
[2020-03-12] MEDS: Atorvastatin Calcium 10 MG TAB PO SCH (08:47)
[2020-03-12] MEDS: Famotidine 20 MG TAB PO SCH (08:47)
[2020-03-12 15:30] VITALS: BP 154/76; TEMP 98.5
--- NOTE | 2020-03-12 15:55 | PDOC.DS.DS ---
Provider - Provider Date of Admission: 03/10/20 17:52 Date of Discharge: 03/12/20 Admitting Provider: Rey Bentley MD Consultations: Neurology Primary Care Physician: Doni Mccray MD Course - Hospital Course Hospital Course: This is a 75-year-old patient who has what appears to be Parkinson disease who was brought into the hospital by his son because he had what he felt was a seizure. The son reported that he was laying on his recliner when he went into this generalized tonic-clonic jerking movement. He was admitted to the hospital for further evaluation and management. He was seen on arrival by neurology and an EEG was obtained. This did not appear to show any evidence of a seizure. Per the son whom I had a long conversation with patient's Parkinson medicines are being optimized by his neurologist and ever since the last couple weeks the patient has had increasing hallucinations. I do not believe that this patient suffered a seizure episode I think this is related to his Parkinson disease. At any rate his EEG did not show any evidence of seizure. He has done very well and is deemed clinically stable for discharge and is discharged home today. Resuscitation Status: 03/09/20 16:57 Resuscitation Status Routine Resuscitation Status: FULL: Full Resuscitation Discussed with: pt's son - Labs Lab Results: 03/11/20 03:56 03/11/20 03:56 Abnormal Lab Results - Last 48 hrs 03/11/20 03:56: Sodium 134 L 03/11/20 03:56: WBC 12.3 H, RBC 3.86 L, Hgb 11.8 L, Hct 36.1 L, Neutrophils % 87.1 H, Lymphocytes % 7.9 L, Neutrophils # 10.7 H, Lymphocytes # 1.0 L, Monocytes # 0.6 H - Physical Exam Vitals: Vital Signs (12 hours) Temp Pulse Pulse Pulse Resp BP BP 03/12/20 15:29 98.5 F 88 18 03/12/20 11:10 98.3 F 79 16 03/12/20 09:45 58 L 69 136/65 144/73 H 03/12/20 07:46 98.3 F 81 18 03/12/20 04:00 98.6 F 50 L 15 BP Pulse Ox Pulse Ox Pulse Ox 03/12/20 15:29 154/76 H 98 11/04/20 11:10 135/64 95 03/12/20 09:45 96 96 03/12/20 07:46 136/93 H 98 03/12/20 04:00 130/58 L 96 Weight Admit Weight 139 lb 11.2 oz Weight 140 lb 14.4 oz Physical Exam: The patient was seen and examined on the day of discharge. Problem - Problem (1) AMS (altered mental status) Code(s): R41.82 - ALTERED MENTAL STATUS, UNSPECIFIED Status: Acute Qualifiers: Altered mental status type: disorientation Qualified Code(s): R41.0 - Disorientation, unspecified (2) Convulsions Status: Acute (3) Paroxysmal atrial fibrillation with RVR Code(s): I48.0 - PAROXYSMAL ATRIAL FIBRILLATION Status: Chronic Plan - Discharge Medications Home Medications: Medication Instructions Recorded Confirmed Type Levothyroxine Sodium [Synthroid] 50 mcg PO QAM 06/19/13 03/09/20 History Rasagiline Mesylate [Azilect] 1 mg PO DAILY 06/19/13 03/09/20 History Simvastatin [Zocor] 20 mg PO HS 06/19/13 03/09/20 History Apixaban [Eliquis] 5 mg PO BID tab 12/19/18 03/09/20 Rx Polyethylene Glycol 3350 [Miralax] 17 gm PO DAILY pk 12/19/18 03/09/20 Rx Carbidopa/Levodopa 1 tablet PO BID 03/09/20 03/09/20 History [Carbidopa/Levodopa ER] Carbidopa/Levodopa [Rytary ER] 1 capsule PO TID 03/09/20 03/09/20 History Midodrine HCl [ProAmatine] 5 mg PO BID 03/09/20 03/09/20 History Pimavanserin Tartrate [Nuplazid] 34 mg PO DAILY 03/09/20 03/09/20 History Aspirin [Ecotrin Low Strength] 81 mg PO DAILY tab 03/12/20 Rx Calcium Polycarbophil [Fibercon] 5 mg PO DAILY tab 03/12/20 Rx Famotidine [Pepcid] 20 mg PO BID tab 03/12/20 Rx Melatonin 3 mg PO HSPRN PRN tab 03/12/20 Rx Allergies: No Known Drug Allergies Allergy (Verified 03/09/20 23:26) - Discharge Instructions Activity:: Activity as Tolerated, No Restrictions Nourishment:: Heart Healthy Diet Therapies:: Home Health, Physical Therapy Equipment/Supplies:: Not Applicable - Follow up Plan Referrals: [facility] [Outside] (Nursing and physical therapy services.) Doni Mccray MD [Primary Care Provider] - 7 Days (PLEASE CALL AND SCHEDULE FOLLOW UP APPOINTMENT. ) Sidra Corbett MD [Active] - 2-3 Weeks (PLEASE CALL AND SCHEDULE FOLLOW UP APPOINTMENT. ) Disposition: HOME Quality - Care Measures CORE MEASURES:: N/A
== END 2020-03-12 16:30 | disposition home or self-care (01) | DRG 56 ==
LOC: ERS 10:45 → ERHOLD 15:22 → 2NO 22:19 → OBSVTOIN 03-10 17:52
PROVIDERS: ADMIT Hospitalist; ATTEND Hospitalist
DX: G20 Parkinson's disease (principal); G93.41 Metabolic encephalopathy; I48.0 Paroxysmal atrial fibrillation; Z20.828 Contact with and (suspected) exposure to other viral communicable diseases; G90.3 Multi-system degeneration of the autonomic nervous system; I10 Essential (primary) hypertension; E03.9 Hypothyroidism, unspecified; E78.5 Hyperlipidemia, unspecified; E78.00 Pure hypercholesterolemia, unspecified; Z79.899 Other long term (current) drug therapy; Z79.890 Hormone replacement therapy; Z79.01 Long term (current) use of anticoagulants
CPT/HCPCS: 36415; 36416; 70450; 70551; 71045; 80048; 80053; 80061; 80307; 81003; 84146; 85025; 87635; 93005; 95712; 95819; 95957; G0378; U0003

== ENCOUNTER 2020-04-02 11:43 | Emergency (ER) | payer MEDICARE, BC ==
--- NOTE | 2020-04-02 12:22 | RAD ---
EXAM: Portable chest PROVIDED CLINICAL HISTORY: Altered mental status COMPARISON: 03/09/2020 FINDINGS: Cardiac and mediastinal silhouette is within normal limits. No focal consolidation, pleural fluid or pneumothorax evident. IMPRESSION: No evidence for an acute cardiopulmonary process.
[2020-04-02 12:24] LABS: #Lymphocytes 1.1 thou/uL (1.20-3.40); #Monocytes 0.5 thou/uL (0.11-0.59); #Neutrophils 11.1 thou/uL (1.40-6.50); %Basophils 0.1 % (0.0-1.0); %Eosinophils 0.2 % (0.0-10.0); %Monocytes 3.7 % (0.0-10.0); %Neutrophils 87.1 % (42.0-75.0); Hemoglobin 11.5 g/dL (14.0-18.0); Mean Corpuscular HGB CONC 32.5 g/dL (32.0-36.0); Mean Corpuscular Hemoglobin 30.4 pg (27.0-31.0); Mean Corpuscular Volume 93.6 fL (78.0-98.0); Mean Platelet Volume 7.2 fL (7.4-10.4); Platelet Count 327 thou/uL (130-400); RBC Distribution Width 12.5 % (11.5-14.5); Red Blood Cell (RBC) Count 3.78 mill/uL (4.70-6.10); White Blood Cell (WBC) Count 12.7 thou/uL (4.8-10.8)
--- NOTE | 2020-04-02 12:36 | CT ---
Exam: CT brain PROVIDED CLINICAL HISTORY: Altered mental status COMPARISON: 03/09/2020 FINDINGS: The ventricular system is normal in size and morphology. No evidence for intracranial hemorrhage or mass effect. The extracranial soft tissues and osseous structures demonstrate no evidence for an acute abnormality. IMPRESSION: No evidence for intracranial hemorrhage or mass effect.
[2020-04-02 12:46] LABS: ALT (SGPT) Less than 7 U/L (8-55); AST (SGOT) 12 U/L (5-34); Albumin 3.7 g/dL (3.4-4.8); Alkaline Phosphatase 89 U/L (40-110); Anion Gap 12 mmol/L (10-20); BUN (Urea Nitrogen) 14 mg/dL (8.4-25.7); Bilirubin, Total 0.7 mg/dL (0.2-1.2); Calc. Creatinine Clearance 0 mL/min (70-130); Carbon Dioxide 28 mmol/L (23-31); Chloride 101 mmol/L (98-107); Estimated GFR-MDRD Greater than 90; Globulin 2.8 g/dL (2.4-3.5); Glucose 114 mg/dL (83-110); Potassium 4.1 mmol/L (3.5-5.1); Protein, Total 6.5 g/dL (5.8-8.1); Sodium 137 mmol/L (136-145)
[2020-04-02 12:57] LABS: Bilirubin Negative (Negative); Blood, Urine Negative (Negative); Clarity Clear (Clear); Glucose, Urine (Dipstick) Normal (Negative); Ketone, Urine Negative (Negative); Leukocyte Negative Leu/uL (Negative); Nitrite Negative (Negative); Protein, Urine (Dipstick) Negative (Neg-Trace); Specific Gravity, Urine 1.012 (1.002-1.036); Urobilinogen Normal mg/dL (Less than 2)
== END 2020-04-02 14:05 | disposition home or self-care (01) ==
LOC: ERS 11:43
DX: D72.829 Elevated white blood cell count, unspecified (principal); F03.90 Unspecified dementia, unspecified severity, without behavioral disturbance, psychotic disturbance, mood disturbance, and anxiety; E11.9 Type 2 diabetes mellitus without complications; E03.9 Hypothyroidism, unspecified; E78.5 Hyperlipidemia, unspecified; E78.00 Pure hypercholesterolemia, unspecified; I48.91 Unspecified atrial fibrillation; G20 Parkinson's disease; Z79.82 Long term (current) use of aspirin; Z79.01 Long term (current) use of anticoagulants; Z79.899 Other long term (current) drug therapy
CPT/HCPCS: 36415; 70450; 71045; 80053; 81003; 84484; 85025; 87086; 93005